=== PATIENT | male | born 1945 | race Caucasian/White ===

== ENCOUNTER 2022-10-01 14:33 | Observation (INO) | payer OTHER ==
[2022-10-01] MEDS ORDERED: Aspirin Chewable 81 MG TAB ONE (15:11)
[2022-10-01 15:32] LABS: #Basophils 0.1 10x3/uL (0.0-0.2); #Eosinphils 0.1 10x3/uL (0.0-0.5); #Monocytes 0.6 10x3/uL (0.0-1.1); #Neutrophils 8.8 10x3/uL (1.5-8.4); %Basophils 0.5 % (0.0-2.0); %Eosinophils 0.5 % (0.0-6.0); %Lymphocytes 14.5 % (18.0-47.0); %Monocytes 5.1 % (0.0-10.0); %Neutrophils 78.7 % (40.0-75.0); Hemoglobin 12.5 g/dL (13.5-17.5); Mean Corpuscular HGB CONC 33.2 g/dL (32.0-36.0); Mean Corpuscular Volume 90.6 fl (81.2-95.1); Mean Platelet Volume 8.6 fl (7.4-10.4); Platelet Count 271 10x3/uL (150-450); RBC Distribution Width 13.7 % (11.5-14.5); Red Blood Cell (RBC) Count 4.16 10x6/uL (4.32-5.72); White Blood Cell (WBC) Count 11.1 10x3/uL (3.5-10.5)
[2022-10-01 15:41] LABS: Prothrombin Time 10.4 sec (9.5-12.1)
[2022-10-01 15:45] LABS: ALT (SGPT) 40 U/L (8-55); AST (SGOT) 36 U/L (5-34); Albumin 4.2 g/dL (3.4-4.8); Alkaline Phosphatase 93 U/L (40-110); Anion Gap 15 mmol/L (10-20); BUN (Urea Nitrogen) 15 mg/dL (8.4-25.7); Bilirubin, Total 0.5 mg/dL (0.2-1.2); Calc. Creatinine Clearance 0 mL/min (70-130); Calcium 8.9 mg/dL (7.8-10.44); Carbon Dioxide 19 mmol/L (23-31); Chloride 99 mmol/L (98-107); Estimated GFR 77; Globulin 2.9 g/dL (2.4-3.5); Glucose 104 mg/dL (83-110); Lipase 24 U/L (8-78); Magnesium 1.8 mg/dL (1.6-2.6); Protein, Total 7.1 g/dL (5.8-8.1); Sodium 128 mmol/L (136-145)
[2022-10-01 15:49] LABS: Troponin I 0.017 ng/mL (< 0.028)
[2022-10-01 16:59] LABS: Bilirubin Neg (Negative); Blood, Urine Negative (Negative); Glucose, Urine (Dipstick) Normal (Negative); Ketone, Urine Negative (Negative); Leukocyte 500 (Negative); Nitrite Negative (Negative); Protein, Urine (Dipstick) 15 mg/dl (Neg-Trace); Urobilinogen Normal mg/dL (Less than 2)
[2022-10-01 17:01] LABS: Clarity Hazy (Clear)
[2022-10-01 17:03] LABS: Bacteria/HPF 4+ HPF (None Seen); RBC/HPF None Seen HPF (0-3); Squamous Epithelial 0-3 HPF (0-3)
[2022-10-01] MEDS ORDERED: traMADol HCl 50 MG TAB PO PRN (17:24)
[2022-10-01 18:21] VITALS: BMI 22.4
[2022-10-01] MEDS: Sodium Chloride 0.9% 1,000 ML IV SCH (19:00)
[2022-10-01 19:01] LABS: Lactic Acid 1.4 mmol/L (0.5-2.2)
[2022-10-01 19:14] LABS: Troponin I 0.012 ng/mL (< 0.028)
[2022-10-01] MEDS: sulfaSALAzine 500 MG TAB PO SCH (21:40)
[2022-10-01] MEDS: Apixaban 5 MG TAB PO SCH (21:40)
[2022-10-01] MEDS: Atorvastatin Calcium 20 MG TAB PO SCH (21:41)
[2022-10-01] MEDS: Sucralfate 1 GM/10 ML UDCUP PO SCH (21:41)
[2022-10-02 00:36] LABS: Troponin I 0.021 ng/mL (< 0.028)
[2022-10-02] MEDS: Sodium Chloride 0.9% 1,000 ML IV SCH ×4 (00:45→20:21)
[2022-10-02 05:47] LABS: #Eosinphils 0.2 10x3/uL (0.0-0.5); #Monocytes 0.5 10x3/uL (0.0-1.1); #Neutrophils 4.7 10x3/uL (1.5-8.4); %Basophils 0.5 % (0.0-2.0); %Eosinophils 1.9 % (0.0-6.0); %Lymphocytes 29.8 % (18.0-47.0); %Neutrophils 60.3 % (40.0-75.0); Hemoglobin 11.1 g/dL (13.5-17.5); Mean Corpuscular HGB CONC 32.6 g/dL (32.0-36.0); Mean Corpuscular Hemoglobin 29.4 pg (27.0-33.0); Mean Corpuscular Volume 90.2 fl (81.2-95.1); Mean Platelet Volume 8.4 fl (7.4-10.4); Platelet Count 226 10x3/uL (150-450); RBC Distribution Width 13.9 % (11.5-14.5); Red Blood Cell (RBC) Count 3.77 10x6/uL (4.32-5.72); White Blood Cell (WBC) Count 7.7 10x3/uL (3.5-10.5)
[2022-10-02 06:34] LABS: Anion Gap 10 mmol/L (10-20); BUN (Urea Nitrogen) 12 mg/dL (8.4-25.7); Calc. Creatinine Clearance 90 mL/min (70-130); Calcium 8.4 mg/dL (7.8-10.44); Carbon Dioxide 21 mmol/L (23-31); Chloride 106 mmol/L (98-107); Estimated GFR 94; Glucose 83 mg/dL (83-110); Potassium 4.3 mmol/L (3.5-5.1); Sodium 133 mmol/L (136-145)
[2022-10-02] MEDS: Cyanocobalamin (Vitamin B-12) 1,000 MCG TAB PO SCH (09:12)
[2022-10-02] MEDS: Colchicine 0.6 MG TAB PO SCH (09:12)
[2022-10-02] MEDS: Apixaban 5 MG TAB PO SCH ×2 (09:12→20:15)
[2022-10-02] MEDS: Aspirin 81 mg Enteric Coated Tablet PO SCH (09:12)
[2022-10-02] MEDS: sulfaSALAzine 500 MG TAB PO SCH ×2 (09:12→20:15)
[2022-10-02] MEDS: cefTRIAXone\\ROCEPHIN 1 GM in Sodium Chloride 0.9% 100 ML IVPB SCH (09:12)
[2022-10-02] MEDS ORDERED: Iopamidol 370 76% 100 ML VIAL ONE (09:13)
[2022-10-02] MEDS: predniSONE 5 MG TAB PO SCH (09:14)
[2022-10-02] MEDS: Sucralfate 1 GM/10 ML UDCUP PO SCH ×2 (09:14→20:15)
[2022-10-02 15:22] LABS: Cardiac Risk 1.9 (Less than 4.5)
[2022-10-02] MEDS: Atorvastatin Calcium 20 MG TAB PO SCH (20:15)
[2022-10-02 22:05] LABS: Hemoglobin A1c 4.6 % (4.0-6.0)
[2022-10-03] MEDS: Sodium Chloride 0.9% 1,000 ML IV SCH (03:30)
[2022-10-03 05:47] LABS: #Basophils 0.1 10x3/uL (0.0-0.2); #Eosinphils 0.2 10x3/uL (0.0-0.5); #Monocytes 0.7 10x3/uL (0.0-1.1); #Neutrophils 4.9 10x3/uL (1.5-8.4); %Basophils 0.7 % (0.0-2.0); %Eosinophils 2.5 % (0.0-6.0); %Lymphocytes 23.9 % (18.0-47.0); %Monocytes 8.9 % (0.0-10.0); %Neutrophils 63.5 % (40.0-75.0); Hemoglobin 10.4 g/dL (13.5-17.5); Mean Corpuscular HGB CONC 32.4 g/dL (32.0-36.0); Mean Corpuscular Hemoglobin 29.8 pg (27.0-33.0); Mean Platelet Volume 8.5 fl (7.4-10.4); Platelet Count 229 10x3/uL (150-450); RBC Distribution Width 13.9 % (11.5-14.5); Red Blood Cell (RBC) Count 3.49 10x6/uL (4.32-5.72); White Blood Cell (WBC) Count 7.6 10x3/uL (3.5-10.5)
[2022-10-03 06:07] LABS: ALT (SGPT) 34 U/L (8-55); AST (SGOT) 25 U/L (5-34); Albumin 3.3 g/dL (3.4-4.8); Alkaline Phosphatase 79 U/L (40-110); Anion Gap 10 mmol/L (10-20); BUN (Urea Nitrogen) 12 mg/dL (8.4-25.7); Bilirubin, Total 0.3 mg/dL (0.2-1.2); Calc. Creatinine Clearance 87 mL/min (70-130); Calcium 8.5 mg/dL (7.8-10.44); Carbon Dioxide 23 mmol/L (23-31); Chloride 107 mmol/L (98-107); Estimated GFR 93; Globulin 2.5 g/dL (2.4-3.5); Glucose 89 mg/dL (83-110); Potassium 4.2 mmol/L (3.5-5.1); Protein, Total 5.8 g/dL (5.8-8.1); Sodium 136 mmol/L (136-145)
[2022-10-03 07:38] VITALS: BP 166/67; TEMP 97.6
[2022-10-03] MEDS: Colchicine 0.6 MG TAB PO SCH (09:12)
[2022-10-03] MEDS: Apixaban 5 MG TAB PO SCH (09:12)
[2022-10-03] MEDS: cefTRIAXone\\ROCEPHIN 1 GM in Sodium Chloride 0.9% 100 ML IVPB SCH (09:12)
[2022-10-03] MEDS: Aspirin 81 mg Enteric Coated Tablet PO SCH (09:12)
[2022-10-03] MEDS: Sucralfate 1 GM/10 ML UDCUP PO SCH (09:12)
[2022-10-03] MEDS: Cyanocobalamin (Vitamin B-12) 1,000 MCG TAB PO SCH (09:12)
[2022-10-03] MEDS: sulfaSALAzine 500 MG TAB PO SCH (09:12)
[2022-10-03] MEDS: predniSONE 5 MG TAB PO SCH (09:17)
== END 2022-10-03 14:07 | disposition home or self-care (01) ==
LOC: CSHERS 14:33 → UNDOADMIN 17:08 → UNDOADMOB 17:08 → INTOOBSV 17:08 → CSHTELE 17:08 → UNDOADMOB 10-02 06:26 → CSHTELE 10-02 06:26
PROVIDERS: ADMIT Family Medicine; ATTEND Internal Medicine
DX: R07.89 Other chest pain (principal); R42 Dizziness and giddiness; N39.0 Urinary tract infection, site not specified; I25.10 Atherosclerotic heart disease of native coronary artery without angina pectoris; I11.0 Hypertensive heart disease with heart failure; I50.30 Unspecified diastolic (congestive) heart failure; K21.9 Gastro-esophageal reflux disease without esophagitis; E87.1 Hypo-osmolality and hyponatremia; M19.90 Unspecified osteoarthritis, unspecified site; M06.9 Rheumatoid arthritis, unspecified; I48.0 Paroxysmal atrial fibrillation; E11.9 Type 2 diabetes mellitus without complications; E78.5 Hyperlipidemia, unspecified; Z87.891 Personal history of nicotine dependence; Z86.73 Personal history of transient ischemic attack (TIA), and cerebral infarction without residual deficits; Z79.01 Long term (current) use of anticoagulants; Z95.0 Presence of cardiac pacemaker; Z79.899 Other long term (current) drug therapy
CPT/HCPCS: 36415; 70496; 71045; 80048; 80053; 80061; 81003; 81015; 83036; 83605; 83690; 83735; 84145; 84484; 85025; 85610; 85730; 87040; 93005; 93010; 93306; 94760; 96374; 96376; G0378; J0696; J3490; J7050; J7512; Q9967

== ENCOUNTER 2023-05-30 17:02 | Inpatient (IN) | payer OTHER, MEDICARE ==
[2023-05-30 19:19] LABS: Troponin I 0.016 ng/mL (< 0.028)
[2023-05-30] MEDS ORDERED: Calcium Carbonate 500 MG ChewTAB PO PRN (19:19)
[2023-05-30] MEDS ORDERED: Ondansetron PF 4 MG/2 ML Vial IVP PRN (19:19)
[2023-05-30] MEDS ORDERED: Ventolin HFA Inhaler 60 PUFF INHALER INH PRN (19:22)
[2023-05-30] MEDS ORDERED: Nitroglycerin 0.4 MG TAB (25 Tab Bottle) SL PRN (19:25)
[2023-05-30] MEDS ORDERED: Sodium Chloride 0.9% 500 ML IV SCH (19:30)
[2023-05-30 19:55] LABS: Lactic Acid 1.5 mmol/L (0.5-2.2)
[2023-05-30] MEDS: Acetaminophen 325 MG TAB PO PRN (21:02)
[2023-05-30] MEDS: Gabapentin 300 MG CAP PO SCH (21:03)
[2023-05-30] MEDS: Amoxicillin/Potassium Clav 875 MG TAB PO SCH (21:03)
[2023-05-30] MEDS: Ferrous Sulfate 325 MG TAB PO SCH (21:04)
[2023-05-30] MEDS: Apixaban 5 MG TAB PO SCH (21:04)
[2023-05-30] MEDS: sulfaSALAzine 500 MG TAB PO SCH (21:04)
[2023-05-30] MEDS: Atorvastatin Calcium 20 MG TAB PO SCH (21:04)
[2023-05-30] MEDS: Hydroxychloroquine Sulfate 200 MG TAB PO SCH (21:05)
[2023-05-30] MEDS: Famotidine 20 MG TAB PO SCH (21:05)
[2023-05-30] MEDS: Tamsulosin HCl 0.4 MG CAP PO SCH (21:08)
[2023-05-30] MEDS ORDERED: Sucralfate 1 GM TAB PO SCH (23:45)
[2023-05-31] MEDS: Ipratropium Bromide 2.5 ml Neb NEB SCH ×4 (01:00→20:35)
[2023-05-31 03:27] LABS: #Basophils 0.1 10x3/uL (0.0-0.2); #Eosinphils 0.2 10x3/uL (0.0-0.5); #Monocytes 0.7 10x3/uL (0.0-1.1); #Neutrophils 5.5 10x3/uL (1.5-8.4); %Basophils 0.7 % (0.0-2.0); %Eosinophils 2.7 % (0.0-6.0); %Lymphocytes 23.1 % (18.0-47.0); %Monocytes 8.4 % (0.0-10.0); %Neutrophils 63.2 % (40.0-75.0); Hematocrit 32.3 % (38.8-50.0); Hemoglobin 10.6 g/dL (13.5-17.5); Mean Corpuscular HGB CONC 32.8 g/dL (32.0-36.0); Mean Corpuscular Volume 85.4 fl (81.2-95.1); Mean Platelet Volume 8.9 fl (7.4-10.4); Platelet Count 362 10x3/uL (150-450); RBC Distribution Width 14.5 % (11.5-14.5); Red Blood Cell (RBC) Count 3.78 10x6/uL (4.32-5.72); White Blood Cell (WBC) Count 8.6 10x3/uL (3.5-10.5)
[2023-05-31 03:47] LABS: Troponin I 0.018 ng/mL (< 0.028)
[2023-05-31 04:37] LABS: Anion Gap 13 mmol/L (10-20); BUN (Urea Nitrogen) 23 mg/dL (8.4-25.7); Calc. Creatinine Clearance 62 mL/min (70-130); Calcium 8.3 mg/dL (7.8-10.44); Carbon Dioxide 21 mmol/L (23-31); Chloride 100 mmol/L (98-107); Estimated GFR 89; Glucose 91 mg/dL (83-110); Potassium 4.5 mmol/L (3.5-5.1); Sodium 129 mmol/L (136-145)
[2023-05-31] MEDS: Sucralfate 1 GM TAB PO SCH ×3 (06:02→17:57)
[2023-05-31] MEDS: Acetaminophen 325 MG TAB PO PRN (06:02)
[2023-05-31] MEDS: Cholecalciferol 1,000 UNITS (25 MCG) TAB PO SCH (09:57)
[2023-05-31] MEDS: Hydroxychloroquine Sulfate 200 MG TAB PO SCH ×2 (09:57→20:35)
[2023-05-31] MEDS: predniSONE 5 MG TAB PO SCH (09:57)
[2023-05-31] MEDS: Cyanocobalamin (Vitamin B-12) 1,000 MCG TAB PO SCH (09:57)
[2023-05-31] MEDS: Apixaban 5 MG TAB PO SCH ×2 (09:58→20:35)
[2023-05-31] MEDS: Amiodarone 200 MG TAB PO SCH (09:58)
[2023-05-31] MEDS: Folic Acid 1 MG TAB PO SCH (09:58)
[2023-05-31] MEDS: Ferrous Sulfate 325 MG TAB PO SCH ×2 (09:58→20:33)
[2023-05-31] MEDS: Famotidine 20 MG TAB PO SCH ×2 (09:58→20:34)
[2023-05-31] MEDS: sulfaSALAzine 500 MG TAB PO SCH ×2 (09:58→20:33)
[2023-05-31] MEDS: Gabapentin 300 MG CAP PO SCH ×2 (09:58→20:34)
[2023-05-31] MEDS: Finasteride 5 MG TAB PO SCH (09:59)
[2023-05-31] MEDS: Amoxicillin/Potassium Clav 875 MG TAB PO SCH ×2 (09:59→20:34)
[2023-05-31] MEDS: Colchicine 0.6 MG TAB PO SCH (10:00)
[2023-05-31 13:28] LABS: Potassium, Urine 18.5 mmol/L; Sodium, Urine Less than 20 mmol/L (Not Available)
[2023-05-31] MEDS: Tamsulosin HCl 0.4 MG CAP PO SCH (20:34)
[2023-05-31] MEDS: Atorvastatin Calcium 20 MG TAB PO SCH (20:37)
[2023-06-01] MEDS: Ipratropium Bromide 2.5 ml Neb NEB SCH ×4 (01:00→19:16)
[2023-06-01] MEDS: Sucralfate 1 GM TAB PO SCH ×3 (06:05→15:44)
[2023-06-01] MEDS: Amoxicillin/Potassium Clav 875 MG TAB PO SCH ×2 (09:15→21:33)
[2023-06-01] MEDS: Isosorbide Mononitrate 30 MG ER.TAB PO SCH (09:15)
[2023-06-01] MEDS: Ferrous Sulfate 325 MG TAB PO SCH ×2 (09:15→21:33)
[2023-06-01] MEDS: Cyanocobalamin (Vitamin B-12) 1,000 MCG TAB PO SCH (09:15)
[2023-06-01] MEDS: sulfaSALAzine 500 MG TAB PO SCH ×2 (09:15→21:33)
[2023-06-01] MEDS: Apixaban 5 MG TAB PO SCH ×2 (09:15→21:32)
[2023-06-01] MEDS: Cholecalciferol 1,000 UNITS (25 MCG) TAB PO SCH (09:16)
[2023-06-01] MEDS: Famotidine 20 MG TAB PO SCH ×2 (09:16→21:33)
[2023-06-01] MEDS: Finasteride 5 MG TAB PO SCH (09:16)
[2023-06-01] MEDS: Amiodarone 200 MG TAB PO SCH (09:16)
[2023-06-01] MEDS: Folic Acid 1 MG TAB PO SCH (09:16)
[2023-06-01] MEDS: Gabapentin 300 MG CAP PO SCH ×2 (09:16→21:32)
[2023-06-01] MEDS: Colchicine 0.6 MG TAB PO SCH (09:17)
[2023-06-01] MEDS: Hydroxychloroquine Sulfate 200 MG TAB PO SCH ×2 (09:17→21:32)
[2023-06-01] MEDS: predniSONE 5 MG TAB PO SCH (09:17)
[2023-06-01] MEDS: Morphine 4 MG/ML VIAL ONE ×2 (10:40→11:25)
[2023-06-01] MEDS ORDERED: Morphine 2 MG/ML VIAL SLOW IVP PRN (10:50)
[2023-06-01] MEDS ORDERED: Morphine 2 MG/ML VIAL SLOW IVP SCH (11:00)
[2023-06-01] MEDS ORDERED: Aspirin 81 mg Enteric Coated Tablet PO SCH (11:00)
[2023-06-01] MEDS ORDERED: Digoxin 0.125 MG TAB PO SCH (14:30)
[2023-06-01] MEDS: Tamsulosin HCl 0.4 MG CAP PO SCH (21:32)
[2023-06-01] MEDS: Atorvastatin Calcium 20 MG TAB PO SCH (21:32)
[2023-06-02] MEDS: Ipratropium Bromide 2.5 ml Neb NEB SCH ×4 (00:48→18:44)
[2023-06-02 04:41] LABS: #Basophils 0.1 10x3/uL (0.0-0.2); #Eosinphils 0.2 10x3/uL (0.0-0.5); #Monocytes 0.9 10x3/uL (0.0-1.1); #Neutrophils 6.9 10x3/uL (1.5-8.4); %Basophils 0.8 % (0.0-2.0); %Eosinophils 1.8 % (0.0-6.0); %Monocytes 8.3 % (0.0-10.0); Hematocrit 33.3 % (38.8-50.0); Mean Corpuscular Hemoglobin 27.8 pg (27.0-33.0); Mean Corpuscular Volume 84.3 fl (81.2-95.1); Mean Platelet Volume 8.9 fl (7.4-10.4); Platelet Count 372 10x3/uL (150-450); Red Blood Cell (RBC) Count 3.95 10x6/uL (4.32-5.72); White Blood Cell (WBC) Count 10.6 10x3/uL (3.5-10.5)
[2023-06-02 04:44] LABS: Anion Gap 14 mmol/L (10-20); BUN (Urea Nitrogen) 25 mg/dL (8.4-25.7); Calc. Creatinine Clearance 53 mL/min (70-130); Calcium 8.2 mg/dL (7.8-10.44); Carbon Dioxide 22 mmol/L (23-31); Chloride 96 mmol/L (98-107); Estimated GFR 78; Glucose 84 mg/dL (83-110); Magnesium 1.4 mg/dL (1.6-2.6); Potassium 5.8 mmol/L (3.5-5.1); Sodium 126 mmol/L (136-145)
[2023-06-02] MEDS: Sucralfate 1 GM TAB PO SCH ×4 (06:35→17:24)
[2023-06-02 08:48] LABS: Troponin I 0.028 ng/mL (< 0.028)
[2023-06-02 09:29] LABS: Anion Gap 14 mmol/L (10-20); BUN (Urea Nitrogen) 25 mg/dL (8.4-25.7); Calc. Creatinine Clearance 51 mL/min (70-130); Calcium 8.4 mg/dL (7.8-10.44); Carbon Dioxide 21 mmol/L (23-31); Chloride 97 mmol/L (98-107); Estimated GFR 77; Glucose 87 mg/dL (83-110); Potassium 5.5 mmol/L (3.5-5.1); Sodium 126 mmol/L (136-145)
[2023-06-02] MEDS ORDERED: Hydrocortisone Sod Succ/PF 100 mg/2 ml Vial IVP SCH ×2 (09:30→22:15)
[2023-06-02] MEDS: Cholecalciferol 1,000 UNITS (25 MCG) TAB PO SCH (09:43)
[2023-06-02] MEDS: Folic Acid 1 MG TAB PO SCH (09:43)
[2023-06-02] MEDS: Digoxin 0.125 MG TAB PO SCH (09:43)
[2023-06-02] MEDS: Amoxicillin/Potassium Clav 875 MG TAB PO SCH ×2 (09:44→21:18)
[2023-06-02] MEDS: Finasteride 5 MG TAB PO SCH (09:44)
[2023-06-02] MEDS: Cyanocobalamin (Vitamin B-12) 1,000 MCG TAB PO SCH (09:44)
[2023-06-02] MEDS: Gabapentin 300 MG CAP PO SCH ×2 (09:44→21:18)
[2023-06-02] MEDS: Aspirin 81 mg Enteric Coated Tablet PO SCH (09:44)
[2023-06-02] MEDS: Ferrous Sulfate 325 MG TAB PO SCH ×2 (09:44→21:18)
[2023-06-02] MEDS: Colchicine 0.6 MG TAB PO SCH (09:44)
[2023-06-02] MEDS: Isosorbide Mononitrate 30 MG ER.TAB PO SCH ×2 (09:44→13:03)
[2023-06-02] MEDS: Amiodarone 200 MG TAB PO SCH (09:45)
[2023-06-02] MEDS: Hydroxychloroquine Sulfate 200 MG TAB PO SCH ×2 (09:45→21:18)
[2023-06-02] MEDS: Famotidine 20 MG TAB PO SCH ×2 (09:45→21:17)
[2023-06-02] MEDS ORDERED: Magnesium 2 GM/50 ML(in water) 2 GM in Premix 1 BAG IVPB SCH (10:00)
[2023-06-02] MEDS: sulfaSALAzine 500 MG TAB PO SCH ×2 (11:26→21:17)
[2023-06-02] MEDS ORDERED: Isosorbide Mononitrate 30 MG ER.TAB PO SCH (13:30)
[2023-06-02] MEDS ORDERED: Apixaban 5 MG TAB PO SCH (14:00)
[2023-06-02 19:36] LABS: Anion Gap 15 mmol/L (10-20); BUN (Urea Nitrogen) 27 mg/dL (8.4-25.7); Calc. Creatinine Clearance 53 mL/min (70-130); Calcium 8.2 mg/dL (7.8-10.44); Carbon Dioxide 21 mmol/L (23-31); Chloride 96 mmol/L (98-107); Estimated GFR 82; Glucose 120 mg/dL (83-110); Potassium 5.5 mmol/L (3.5-5.1); Sodium 126 mmol/L (136-145)
[2023-06-02] MEDS: Tamsulosin HCl 0.4 MG CAP PO SCH (21:17)
[2023-06-02] MEDS: Apixaban 5 MG TAB PO SCH (21:18)
[2023-06-02] MEDS: Atorvastatin Calcium 20 MG TAB PO SCH (21:18)
[2023-06-02] MEDS ORDERED: LOKELMA 10 GM PACKET PO SCH (21:30)
[2023-06-02] MEDS ORDERED: Albumin 25% 25 GM (100 mL) BOT IVPB SCH (21:30)
[2023-06-03] MEDS: Ipratropium Bromide 2.5 ml Neb NEB SCH ×4 (01:37→19:45)
[2023-06-03] MEDS ORDERED: Albumin 25% 25 GM (100 mL) BOT IVPB SCH (03:30)
[2023-06-03] MEDS ORDERED: Hydrocortisone Sod Succ/PF 100 mg/2 ml Vial IVP SCH (04:00)
[2023-06-03 05:44] LABS: Anion Gap 15 mmol/L (10-20); BUN (Urea Nitrogen) 25 mg/dL (8.4-25.7); Calc. Creatinine Clearance 51 mL/min (70-130); Calcium 8.5 mg/dL (7.8-10.44); Carbon Dioxide 20 mmol/L (23-31); Chloride 97 mmol/L (98-107); Estimated GFR 78; Glucose 94 mg/dL (83-110); Potassium 5.2 mmol/L (3.5-5.1); Sodium 127 mmol/L (136-145)
[2023-06-03] MEDS: Gabapentin 300 MG CAP PO SCH ×2 (08:47→20:34)
[2023-06-03] MEDS: Aspirin 81 mg Enteric Coated Tablet PO SCH (08:47)
[2023-06-03] MEDS: Isosorbide Mononitrate 30 MG ER.TAB PO SCH (08:47)
[2023-06-03] MEDS: sulfaSALAzine 500 MG TAB PO SCH ×2 (08:47→20:33)
[2023-06-03] MEDS: Folic Acid 1 MG TAB PO SCH (08:48)
[2023-06-03] MEDS: Ferrous Sulfate 325 MG TAB PO SCH ×2 (08:48→20:32)
[2023-06-03] MEDS: Famotidine 20 MG TAB PO SCH ×2 (08:48→20:32)
[2023-06-03] MEDS: Hydroxychloroquine Sulfate 200 MG TAB PO SCH ×2 (08:48→20:32)
[2023-06-03] MEDS: Colchicine 0.6 MG TAB PO SCH (08:48)
[2023-06-03] MEDS: Cyanocobalamin (Vitamin B-12) 1,000 MCG TAB PO SCH (08:48)
[2023-06-03] MEDS: Digoxin 0.125 MG TAB PO SCH (08:49)
[2023-06-03] MEDS: predniSONE 10 MG TAB PO SCH (08:49)
[2023-06-03] MEDS: Finasteride 5 MG TAB PO SCH (08:49)
[2023-06-03] MEDS: Amiodarone 200 MG TAB PO SCH (08:49)
[2023-06-03] MEDS: Apixaban 5 MG TAB PO SCH ×2 (08:49→20:32)
[2023-06-03] MEDS: Cholecalciferol 1,000 UNITS (25 MCG) TAB PO SCH (08:49)
[2023-06-03] MEDS: Sucralfate 1 GM TAB PO SCH ×2 (09:06→17:38)
[2023-06-03 10:08] LABS: Anion Gap 16 mmol/L (10-20); BUN (Urea Nitrogen) 24 mg/dL (8.4-25.7); Calc. Creatinine Clearance 50 mL/min (70-130); Calcium 8.8 mg/dL (7.8-10.44); Carbon Dioxide 18 mmol/L (23-31); Chloride 99 mmol/L (98-107); Estimated GFR 77; Glucose 142 mg/dL (83-110); Potassium 5.1 mmol/L (3.5-5.1); Sodium 128 mmol/L (136-145)
[2023-06-03] MEDS: Atorvastatin Calcium 20 MG TAB PO SCH (20:33)
[2023-06-03] MEDS: Tamsulosin HCl 0.4 MG CAP PO SCH (20:33)
[2023-06-04] MEDS: Ipratropium Bromide 2.5 ml Neb NEB SCH ×4 (01:14→20:00)
[2023-06-04 03:55] LABS: #Basophils 0.1 10x3/uL (0.0-0.2); #Eosinphils 0.1 10x3/uL (0.0-0.5); #Monocytes 0.7 10x3/uL (0.0-1.1); #Neutrophils 6.8 10x3/uL (1.5-8.4); %Basophils 0.5 % (0.0-2.0); %Eosinophils 0.8 % (0.0-6.0); %Lymphocytes 20.1 % (18.0-47.0); %Monocytes 7.1 % (0.0-10.0); %Neutrophils 69.8 % (40.0-75.0); Hematocrit 30.5 % (38.8-50.0); Hemoglobin 10.2 g/dL (13.5-17.5); Mean Corpuscular HGB CONC 33.4 g/dL (32.0-36.0); Mean Corpuscular Hemoglobin 27.8 pg (27.0-33.0); Mean Corpuscular Volume 83.1 fl (81.2-95.1); Mean Platelet Volume 8.9 fl (7.4-10.4); Platelet Count 348 10x3/uL (150-450); RBC Distribution Width 14.2 % (11.5-14.5); Red Blood Cell (RBC) Count 3.67 10x6/uL (4.32-5.72); White Blood Cell (WBC) Count 9.8 10x3/uL (3.5-10.5)
[2023-06-04 04:05] LABS: Anion Gap 13 mmol/L (10-20); BUN (Urea Nitrogen) 26 mg/dL (8.4-25.7); Calc. Creatinine Clearance 57 mL/min (70-130); Calcium 8.6 mg/dL (7.8-10.44); Carbon Dioxide 19 mmol/L (23-31); Chloride 101 mmol/L (98-107); Estimated GFR 88; Glucose 83 mg/dL (83-110); Potassium 4.9 mmol/L (3.5-5.1); Sodium 128 mmol/L (136-145)
[2023-06-04] MEDS: Sucralfate 1 GM TAB PO SCH (06:06)
[2023-06-04] MEDS: Cyanocobalamin (Vitamin B-12) 1,000 MCG TAB PO SCH (08:38)
[2023-06-04] MEDS: Cholecalciferol 1,000 UNITS (25 MCG) TAB PO SCH (08:38)
[2023-06-04] MEDS: Digoxin 0.125 MG TAB PO SCH (08:38)
[2023-06-04] MEDS: Isosorbide Mononitrate 30 MG ER.TAB PO SCH (08:38)
[2023-06-04] MEDS: sulfaSALAzine 500 MG TAB PO SCH (08:38)
[2023-06-04] MEDS: Aspirin 81 mg Enteric Coated Tablet PO SCH (08:38)
[2023-06-04] MEDS: Famotidine 20 MG TAB PO SCH ×2 (08:39→21:59)
[2023-06-04] MEDS: Ferrous Sulfate 325 MG TAB PO SCH (08:39)
[2023-06-04] MEDS: Finasteride 5 MG TAB PO SCH (08:39)
[2023-06-04] MEDS: predniSONE 10 MG TAB PO SCH (08:39)
[2023-06-04] MEDS: Folic Acid 1 MG TAB PO SCH (08:39)
[2023-06-04] MEDS: Apixaban 5 MG TAB PO SCH ×2 (08:40→21:59)
[2023-06-04] MEDS: Amiodarone 200 MG TAB PO SCH (08:40)
[2023-06-04] MEDS: Gabapentin 300 MG CAP PO SCH ×2 (08:41→21:59)
[2023-06-04] MEDS: Hydroxychloroquine Sulfate 200 MG TAB PO SCH ×2 (08:42→22:27)
[2023-06-04] MEDS: Tamsulosin HCl 0.4 MG CAP PO SCH (21:58)
[2023-06-04] MEDS: Atorvastatin Calcium 20 MG TAB PO SCH (21:58)
[2023-06-05] MEDS: Ipratropium Bromide 2.5 ml Neb NEB SCH ×4 (00:50→19:07)
[2023-06-05 04:06] LABS: Anion Gap 15 mmol/L (10-20); BUN (Urea Nitrogen) 25 mg/dL (8.4-25.7); Calc. Creatinine Clearance 50 mL/min (70-130); Calcium 8.6 mg/dL (7.8-10.44); Carbon Dioxide 15 mmol/L (23-31); Chloride 103 mmol/L (98-107); Estimated GFR 78; Glucose 94 mg/dL (83-110); Potassium 5.7 mmol/L (3.5-5.1); Sodium 127 mmol/L (136-145)
[2023-06-05] MEDS ORDERED: Sodium Chloride 0.9% 1,000 ML IV SCH (08:30)
[2023-06-05] MEDS ORDERED: LOKELMA 10 GM PACKET PO SCH (09:00)
[2023-06-05] MEDS ORDERED: Sodium Bicarbonate 150 MEQ in Dextrose 5% in Water 1,000 ML IV SCH (09:00)
[2023-06-05] MEDS: Multivitamin W/ Minerals 1 TAB PO SCH (09:55)
[2023-06-05] MEDS: Apixaban 5 MG TAB PO SCH ×2 (09:55→20:38)
[2023-06-05] MEDS: Cholecalciferol 1,000 UNITS (25 MCG) TAB PO SCH (09:55)
[2023-06-05] MEDS: Finasteride 5 MG TAB PO SCH (09:56)
[2023-06-05] MEDS: Aspirin 81 mg Enteric Coated Tablet PO SCH (09:56)
[2023-06-05] MEDS: predniSONE 10 MG TAB PO SCH (09:56)
[2023-06-05] MEDS: Famotidine 20 MG TAB PO SCH ×2 (09:56→20:38)
[2023-06-05] MEDS: Gabapentin 300 MG CAP PO SCH ×2 (09:56→20:38)
[2023-06-05] MEDS: Digoxin 0.125 MG TAB PO SCH (09:57)
[2023-06-05] MEDS: Isosorbide Mononitrate 30 MG ER.TAB PO SCH (09:57)
[2023-06-05] MEDS: Amiodarone 200 MG TAB PO SCH (09:57)
[2023-06-05] MEDS: Hydroxychloroquine Sulfate 200 MG TAB PO SCH ×2 (09:58→20:45)
[2023-06-05] MEDS: Hydrocortisone 10 mg Tablet PO SCH ×3 (09:59→20:45)
[2023-06-05] MEDS ORDERED: Diphenoxylate HCl/Atropine Tablet PO SCH (20:00)
[2023-06-05] MEDS: Tamsulosin HCl 0.4 MG CAP PO SCH (20:37)
[2023-06-05] MEDS: Atorvastatin Calcium 20 MG TAB PO SCH (20:38)
[2023-06-06] MEDS: Ipratropium Bromide 2.5 ml Neb NEB SCH ×4 (01:09→19:14)
[2023-06-06 04:59] LABS: Anion Gap 12 mmol/L (10-20); BUN (Urea Nitrogen) 23 mg/dL (8.4-25.7); Calc. Creatinine Clearance 58 mL/min (70-130); Calcium 8.1 mg/dL (7.8-10.44); Carbon Dioxide 26 mmol/L (23-31); Chloride 96 mmol/L (98-107); Estimated GFR 88; Glucose 102 mg/dL (83-110); Iron 38 ug/dL (65-175); Iron 39 ug/dL (65-175); Iron Binding Capacity, Total 225 mcg/dL (261-462); Iron Binding Capacity, Total 231 mcg/dL (261-462); Potassium 5.2 mmol/L (3.5-5.1); Sodium 129 mmol/L (136-145)
[2023-06-06 05:15] LABS: Ferritin 569.23 ng/mL (22-322)
[2023-06-06] MEDS ORDERED: Diphenoxylate HCl/Atropine Tablet PO SCH (09:00)
[2023-06-06] MEDS ORDERED: Loperamide HCl 2 MG CAP PO SCH (09:00)
[2023-06-06] MEDS: Cholecalciferol 1,000 UNITS (25 MCG) TAB PO SCH (09:50)
[2023-06-06] MEDS: Amiodarone 200 MG TAB PO SCH (09:50)
[2023-06-06] MEDS: predniSONE 10 MG TAB PO SCH (09:50)
[2023-06-06] MEDS: Gabapentin 300 MG CAP PO SCH ×2 (09:50→21:01)
[2023-06-06] MEDS: Apixaban 5 MG TAB PO SCH ×2 (09:51→21:01)
[2023-06-06] MEDS: Finasteride 5 MG TAB PO SCH (09:51)
[2023-06-06] MEDS: Isosorbide Mononitrate 30 MG ER.TAB PO SCH (09:51)
[2023-06-06] MEDS: Digoxin 0.125 MG TAB PO SCH (09:52)
[2023-06-06] MEDS: Hydrocortisone 10 mg Tablet PO SCH ×3 (09:52→21:02)
[2023-06-06] MEDS: Aspirin 81 mg Enteric Coated Tablet PO SCH (09:52)
[2023-06-06] MEDS: Famotidine 20 MG TAB PO SCH (09:52)
[2023-06-06] MEDS: Hydroxychloroquine Sulfate 200 MG TAB PO SCH ×2 (09:53→21:02)
[2023-06-06] MEDS: Multivitamin W/ Minerals 1 TAB PO SCH (09:56)
[2023-06-06 10:59] LABS: Anion Gap 14 mmol/L (10-20); BUN (Urea Nitrogen) 24 mg/dL (8.4-25.7); Calc. Creatinine Clearance 54 mL/min (70-130); Calcium 8.7 mg/dL (7.8-10.44); Carbon Dioxide 24 mmol/L (23-31); Chloride 97 mmol/L (98-107); Estimated GFR 85; Glucose 99 mg/dL (83-110); Potassium 4.8 mmol/L (3.5-5.1); Sodium 130 mmol/L (136-145)
[2023-06-06 13:55] LABS: Vitamin B12 Greater than 2000 pg/mL (211-911)
[2023-06-06] MEDS: Ferrous Sulfate 325 MG TAB PO SCH (16:06)
[2023-06-06] MEDS: Diphenoxylate HCl/Atropine Tablet PO SCH (19:04)
[2023-06-06] MEDS: Tamsulosin HCl 0.4 MG CAP PO SCH (21:01)
[2023-06-06] MEDS: Atorvastatin Calcium 20 MG TAB PO SCH (21:02)
[2023-06-07] MEDS: Diphenoxylate HCl/Atropine Tablet PO SCH ×4 (00:14→17:03)
[2023-06-07] MEDS: Ipratropium Bromide 2.5 ml Neb NEB SCH ×4 (00:43→19:15)
[2023-06-07 04:51] LABS: Phosphorus 3.9 mg/dL (2.3-4.7)
[2023-06-07 04:53] LABS: Anion Gap 13 mmol/L (10-20); BUN (Urea Nitrogen) 29 mg/dL (8.4-25.7); Calc. Creatinine Clearance 53 mL/min (70-130); Calcium 8.7 mg/dL (7.8-10.44); Carbon Dioxide 23 mmol/L (23-31); Chloride 99 mmol/L (98-107); Estimated GFR 84; Glucose 92 mg/dL (83-110); Magnesium 1.7 mg/dL (1.6-2.6); Potassium 4.9 mmol/L (3.5-5.1); Sodium 130 mmol/L (136-145)
[2023-06-07] MEDS: Ferrous Sulfate 325 MG TAB PO SCH ×2 (08:20→17:03)
[2023-06-07] MEDS: Isosorbide Mononitrate 30 MG ER.TAB PO SCH (09:19)
[2023-06-07] MEDS: Cholecalciferol 1,000 UNITS (25 MCG) TAB PO SCH (09:19)
[2023-06-07] MEDS: Hydroxychloroquine Sulfate 200 MG TAB PO SCH ×2 (09:19→21:09)
[2023-06-07] MEDS: Multivitamin W/ Minerals 1 TAB PO SCH (09:19)
[2023-06-07] MEDS: predniSONE 10 MG TAB PO SCH (09:19)
[2023-06-07] MEDS: Hydrocortisone 10 mg Tablet PO SCH ×3 (09:20→21:09)
[2023-06-07] MEDS: Amiodarone 200 MG TAB PO SCH (09:20)
[2023-06-07] MEDS: Aspirin 81 mg Enteric Coated Tablet PO SCH (09:20)
[2023-06-07] MEDS: Digoxin 0.125 MG TAB PO SCH (09:20)
[2023-06-07] MEDS: Apixaban 5 MG TAB PO SCH ×2 (09:20→22:55)
[2023-06-07] MEDS: Gabapentin 300 MG CAP PO SCH ×2 (09:21→21:10)
[2023-06-07] MEDS: Finasteride 5 MG TAB PO SCH (09:21)
[2023-06-07] MEDS: Pantoprazole 40 MG VIAL IVP SCH ×2 (09:23→21:11)
[2023-06-07 13:20] LABS: Ref Lab Test Ordered stool fecal elastase; Reference Lab Name LABCORP
[2023-06-07] MEDS ORDERED: Lidocaine 1% PF 5 ML VIAL ONE ×2 (15:15→15:17)
[2023-06-07 16:10] VITALS: BMI 17.1
[2023-06-07 16:40] LABS: PTT 27.9 sec (22.0-33.0)
[2023-06-07 17:24] LABS: INR-International Normal Ratio 1.1; Prothrombin Time 11.4 sec (9.5-12.1)
[2023-06-07] MEDS: AMOXicillin 250 MG CAP PO SCH (21:09)
[2023-06-07] MEDS: Atorvastatin Calcium 20 MG TAB PO SCH (21:09)
[2023-06-07] MEDS: metroNIDAZOLE 500 MG TAB PO SCH (21:10)
[2023-06-07] MEDS: Tamsulosin HCl 0.4 MG CAP PO SCH (21:10)
[2023-06-08] MEDS: Diphenoxylate HCl/Atropine Tablet PO SCH ×5 (00:03→23:29)
[2023-06-08] MEDS: Ipratropium Bromide 2.5 ml Neb NEB SCH ×4 (01:00→19:35)
[2023-06-08 04:32] LABS: Anion Gap 13 mmol/L (10-20); BUN (Urea Nitrogen) 29 mg/dL (8.4-25.7); Calc. Creatinine Clearance 55 mL/min (70-130); Calcium 8.5 mg/dL (7.8-10.44); Carbon Dioxide 19 mmol/L (23-31); Chloride 103 mmol/L (98-107); Estimated GFR 87; Glucose 109 mg/dL (83-110); Sodium 130 mmol/L (136-145)
[2023-06-08] MEDS: Pantoprazole 40 MG VIAL IVP SCH ×3 (09:10→22:01)
[2023-06-08] MEDS: Cholecalciferol 1,000 UNITS (25 MCG) TAB PO SCH (09:15)
[2023-06-08] MEDS: Aspirin 81 mg Enteric Coated Tablet PO SCH (09:15)
[2023-06-08] MEDS: Digoxin 0.125 MG TAB PO SCH (09:15)
[2023-06-08] MEDS: Hydrocortisone 10 mg Tablet PO SCH ×3 (09:15→21:58)
[2023-06-08] MEDS: Gabapentin 300 MG CAP PO SCH ×2 (09:16→21:58)
[2023-06-08] MEDS: Isosorbide Mononitrate 30 MG ER.TAB PO SCH (09:17)
[2023-06-08] MEDS: AMOXicillin 250 MG CAP PO SCH ×2 (09:17→21:59)
[2023-06-08] MEDS: Hydroxychloroquine Sulfate 200 MG TAB PO SCH ×2 (09:17→21:58)
[2023-06-08] MEDS: Finasteride 5 MG TAB PO SCH (09:17)
[2023-06-08] MEDS: metroNIDAZOLE 500 MG TAB PO SCH ×2 (09:18→21:59)
[2023-06-08] MEDS: Apixaban 5 MG TAB PO SCH ×2 (09:18→21:58)
[2023-06-08] MEDS: Ferrous Sulfate 325 MG TAB PO SCH ×2 (09:18→18:23)
[2023-06-08] MEDS: Multivitamin W/ Minerals 1 TAB PO SCH (09:19)
[2023-06-08] MEDS: Amiodarone 200 MG TAB PO SCH (09:23)
[2023-06-08] MEDS ORDERED: Magnesium 2 GM/50 ML(in water) 2 GM in Premix 1 BAG IVPB SCH (09:30)
[2023-06-08] MEDS ORDERED: Sodium Bicarbonate 2.5 MEQ/5 ML SDV ONE (10:42)
[2023-06-08] MEDS ORDERED: Lidocaine 1% PF 5 ML VIAL ONE (10:42)
[2023-06-08] MEDS: Tamsulosin HCl 0.4 MG CAP PO SCH (21:58)
[2023-06-08] MEDS: Atorvastatin Calcium 20 MG TAB PO SCH (21:59)
[2023-06-09] MEDS: Ipratropium Bromide 2.5 ml Neb NEB SCH ×4 (02:25→19:15)
[2023-06-09 05:26] LABS: Anion Gap 12 mmol/L (10-20); BUN (Urea Nitrogen) 27 mg/dL (8.4-25.7); Calc. Creatinine Clearance 49 mL/min (70-130); Calcium 8.4 mg/dL (7.8-10.44); Carbon Dioxide 21 mmol/L (23-31); Chloride 102 mmol/L (98-107); Estimated GFR 77; Glucose 104 mg/dL (83-110); Phosphorus 2.7 mg/dL (2.3-4.7); Potassium 4.7 mmol/L (3.5-5.1); Sodium 130 mmol/L (136-145)
[2023-06-09 05:53] LABS: Actual Bicarbonate (HCO3v) 22.1 mEq/L (22-28); Analyzer IN Cardio CS ICU; Base Excess -4.9 mEq/L (-2 - +2); Calcium, Ionized (venous) 1.19 mmol/L (1.16-1.32); Chloride (VBG) 101 mmol/L (98-106); Hematocrit-VBG 36 % (42.0-52.0); Hemoglobin (Hb) 12.4 g/dL (12.6-17.4); Potassium (VBG) 4.49 mmol/L (3.70-5.30); Puncture Site Other Site; RapidComm Collect By LAB; Sodium 128 mmol/L (133-146); pH (venous) 7.276 (7.32-7.43)
[2023-06-09] MEDS: Diphenoxylate HCl/Atropine Tablet PO SCH ×4 (07:44→23:23)
[2023-06-09] MEDS: Pantoprazole 40 MG VIAL IVP SCH ×3 (09:46→21:34)
[2023-06-09] MEDS: Amiodarone 200 MG TAB PO SCH (09:47)
[2023-06-09] MEDS: Aspirin 81 mg Enteric Coated Tablet PO SCH (09:47)
[2023-06-09] MEDS: Ferrous Sulfate 325 MG TAB PO SCH ×2 (09:47→16:22)
[2023-06-09] MEDS: Hydrocortisone 10 mg Tablet PO SCH ×3 (09:47→21:29)
[2023-06-09] MEDS: Gabapentin 300 MG CAP PO SCH ×2 (09:47→21:27)
[2023-06-09] MEDS: Hydroxychloroquine Sulfate 200 MG TAB PO SCH ×2 (09:47→21:29)
[2023-06-09] MEDS: Apixaban 5 MG TAB PO SCH ×2 (09:47→21:27)
[2023-06-09] MEDS: metroNIDAZOLE 500 MG TAB PO SCH ×2 (09:48→21:28)
[2023-06-09] MEDS: Cholecalciferol 1,000 UNITS (25 MCG) TAB PO SCH (09:48)
[2023-06-09] MEDS: AMOXicillin 250 MG CAP PO SCH ×2 (09:48→21:27)
[2023-06-09] MEDS: Multivitamin W/ Minerals 1 TAB PO SCH (09:48)
[2023-06-09] MEDS: Finasteride 5 MG TAB PO SCH (09:48)
[2023-06-09] MEDS: Digoxin 0.125 MG TAB PO SCH (09:48)
[2023-06-09] MEDS: Isosorbide Mononitrate 30 MG ER.TAB PO SCH (09:49)
[2023-06-09] MEDS: Atorvastatin Calcium 20 MG TAB PO SCH (21:27)
[2023-06-09] MEDS: Tamsulosin HCl 0.4 MG CAP PO SCH (21:28)
[2023-06-10] MEDS: Ipratropium Bromide 2.5 ml Neb NEB SCH ×4 (01:40→19:38)
[2023-06-10 05:04] LABS: Anion Gap 13 mmol/L (10-20); BUN (Urea Nitrogen) 28 mg/dL (8.4-25.7); Calc. Creatinine Clearance 51 mL/min (70-130); Calcium 8.7 mg/dL (7.8-10.44); Carbon Dioxide 19 mmol/L (23-31); Chloride 102 mmol/L (98-107); Estimated GFR 81; Glucose 96 mg/dL (83-110); Potassium 5.4 mmol/L (3.5-5.1); Sodium 129 mmol/L (136-145)
[2023-06-10] MEDS: Diphenoxylate HCl/Atropine Tablet PO SCH ×3 (06:04→16:21)
[2023-06-10] MEDS: Hydrocortisone 10 mg Tablet PO SCH ×3 (09:42→21:07)
[2023-06-10] MEDS: Aspirin 81 mg Enteric Coated Tablet PO SCH (09:42)
[2023-06-10] MEDS: Ferrous Sulfate 325 MG TAB PO SCH ×2 (09:42→16:21)
[2023-06-10] MEDS: AMOXicillin 250 MG CAP PO SCH ×2 (09:42→21:06)
[2023-06-10] MEDS: metroNIDAZOLE 500 MG TAB PO SCH ×2 (09:42→21:07)
[2023-06-10] MEDS: Pantoprazole 40 MG VIAL IVP SCH ×3 (09:42→21:08)
[2023-06-10] MEDS: Gabapentin 300 MG CAP PO SCH ×2 (09:43→21:07)
[2023-06-10] MEDS: Cholecalciferol 1,000 UNITS (25 MCG) TAB PO SCH (09:43)
[2023-06-10] MEDS: Multivit, Therapeutic 1 TAB PO SCH (09:43)
[2023-06-10] MEDS: Amiodarone 200 MG TAB PO SCH (09:43)
[2023-06-10] MEDS: Digoxin 0.125 MG TAB PO SCH (09:43)
[2023-06-10] MEDS: Finasteride 5 MG TAB PO SCH (09:43)
[2023-06-10] MEDS: Apixaban 5 MG TAB PO SCH ×2 (09:43→21:08)
[2023-06-10] MEDS: Isosorbide Mononitrate 30 MG ER.TAB PO SCH (09:44)
[2023-06-10] MEDS: Hydroxychloroquine Sulfate 200 MG TAB PO SCH ×2 (09:49→21:06)
[2023-06-10] MEDS: [UNRECOGNIZED DRUG - REMARK] IV SCH (15:42)
[2023-06-10] MEDS: Fat Emulsion 250 ML IVPB SCH (15:43)
[2023-06-10] MEDS: Atorvastatin Calcium 20 MG TAB PO SCH (21:07)
[2023-06-10] MEDS: Tamsulosin HCl 0.4 MG CAP PO SCH (21:08)
[2023-06-11] MEDS: Diphenoxylate HCl/Atropine Tablet PO SCH ×4 (01:28→20:57)
[2023-06-11] MEDS: Ipratropium Bromide 2.5 ml Neb NEB SCH ×4 (01:59→19:15)
[2023-06-11 04:13] LABS: Anion Gap 10 mmol/L (10-20); BUN (Urea Nitrogen) 29 mg/dL (8.4-25.7); Calc. Creatinine Clearance 58 mL/min (70-130); Carbon Dioxide 16 mmol/L (23-31); Chloride 102 mmol/L (98-107); Estimated GFR 89; Glucose 145 mg/dL (83-110); Sodium 124 mmol/L (136-145)
[2023-06-11] MEDS: Pantoprazole 40 MG VIAL IVP SCH ×3 (08:55→20:55)
[2023-06-11] MEDS: metroNIDAZOLE 500 MG TAB PO SCH ×2 (08:56→20:56)
[2023-06-11] MEDS: Apixaban 5 MG TAB PO SCH ×2 (08:56→20:56)
[2023-06-11] MEDS: Digoxin 0.125 MG TAB PO SCH (08:56)
[2023-06-11] MEDS: Aspirin 81 mg Enteric Coated Tablet PO SCH (08:56)
[2023-06-11] MEDS: Multivit, Therapeutic 1 TAB PO SCH (08:56)
[2023-06-11] MEDS: Ferrous Sulfate 325 MG TAB PO SCH ×2 (08:56→16:09)
[2023-06-11] MEDS: Isosorbide Mononitrate 30 MG ER.TAB PO SCH (08:57)
[2023-06-11] MEDS: Finasteride 5 MG TAB PO SCH (08:57)
[2023-06-11] MEDS: Amiodarone 200 MG TAB PO SCH (08:57)
[2023-06-11] MEDS: AMOXicillin 250 MG CAP PO SCH ×2 (08:57→20:55)
[2023-06-11] MEDS: Cholecalciferol 1,000 UNITS (25 MCG) TAB PO SCH (08:57)
[2023-06-11] MEDS: Gabapentin 300 MG CAP PO SCH ×2 (08:57→20:56)
[2023-06-11] MEDS: Hydroxychloroquine Sulfate 200 MG TAB PO SCH ×2 (08:58→20:55)
[2023-06-11] MEDS: predniSONE 5 MG TAB PO SCH (08:58)
[2023-06-11] MEDS ORDERED: Sodium Chloride 0.9% 1,000 ML IV SCH (09:45)
[2023-06-11] MEDS ORDERED: Sodium Bicarbonate 150 MEQ in Dextrose 5% in Water 1,000 ML IV SCH (10:30)
[2023-06-11] MEDS: [UNRECOGNIZED DRUG - REMARK] IV SCH (14:09)
[2023-06-11] MEDS: Fat Emulsion 250 ML IVPB SCH (14:10)
[2023-06-11] MEDS: Tamsulosin HCl 0.4 MG CAP PO SCH (20:55)
[2023-06-11] MEDS: Atorvastatin Calcium 20 MG TAB PO SCH (20:56)
[2023-06-12] MEDS: Diphenoxylate HCl/Atropine Tablet PO SCH ×5 (00:15→23:53)
[2023-06-12] MEDS: Ipratropium Bromide 2.5 ml Neb NEB SCH ×4 (01:51→19:25)
[2023-06-12] MEDS: Acetaminophen 325 MG TAB PO PRN (02:55)
[2023-06-12 05:38] LABS: Anion Gap 12 mmol/L (10-20); BUN (Urea Nitrogen) 33 mg/dL (8.4-25.7); Calc. Creatinine Clearance 63 mL/min (70-130); Calcium 8.1 mg/dL (7.8-10.44); Carbon Dioxide 18 mmol/L (23-31); Chloride 98 mmol/L (98-107); Estimated GFR 91; Glucose 120 mg/dL (83-110); Magnesium 1.3 mg/dL (1.6-2.6); Sodium 124 mmol/L (136-145)
[2023-06-12 05:43] LABS: Phosphorus 1.2 mg/dL (2.3-4.7)
[2023-06-12] MEDS ORDERED: Potassium Phosphate 30 MMOL in Sodium Chloride 0.9% 250 ML 250 ML IVPB SCH (06:30)
[2023-06-12] MEDS ORDERED: Magnesium 2 GM/50 ML(in water) 2 GM in Premix 1 BAG IVPB SCH (06:30)
[2023-06-12] MEDS: Aspirin 81 mg Enteric Coated Tablet PO SCH (09:33)
[2023-06-12] MEDS: Isosorbide Mononitrate 30 MG ER.TAB PO SCH (09:33)
[2023-06-12] MEDS: predniSONE 5 MG TAB PO SCH (09:33)
[2023-06-12] MEDS: Apixaban 5 MG TAB PO SCH ×2 (09:33→20:55)
[2023-06-12] MEDS: Amiodarone 200 MG TAB PO SCH (09:33)
[2023-06-12] MEDS: AMOXicillin 250 MG CAP PO SCH ×2 (09:34→20:53)
[2023-06-12] MEDS: Ferrous Sulfate 325 MG TAB PO SCH ×2 (09:34→17:07)
[2023-06-12] MEDS: Cholecalciferol 1,000 UNITS (25 MCG) TAB PO SCH (09:34)
[2023-06-12] MEDS: Gabapentin 300 MG CAP PO SCH ×2 (09:34→20:54)
[2023-06-12] MEDS: Digoxin 0.125 MG TAB PO SCH (09:35)
[2023-06-12] MEDS: Finasteride 5 MG TAB PO SCH (09:35)
[2023-06-12] MEDS: metroNIDAZOLE 500 MG TAB PO SCH ×2 (09:35→20:54)
[2023-06-12] MEDS ORDERED: Sodium Bicarbonate 150 MEQ in Dextrose 5% in Water 1,000 ML IV SCH (10:00)
[2023-06-12] MEDS: Hydroxychloroquine Sulfate 200 MG TAB PO SCH ×2 (12:29→20:55)
[2023-06-12] MEDS: Pantoprazole 40 MG VIAL IVP SCH ×2 (12:29)
[2023-06-12] MEDS ORDERED: MAGNESIUM SULFATE IV SCH (14:00)
[2023-06-12] MEDS ORDERED: MULTITRACE IV SCH (14:00)
[2023-06-12] MEDS ORDERED: MULTIVITAMINS IV SCH (14:00)
[2023-06-12] MEDS ORDERED: [UNRECOGNIZED DRUG - OTHER] IV SCH (14:00)
[2023-06-12] MEDS: Fat Emulsion 250 ML IVPB SCH (14:54)
[2023-06-12] MEDS: Morphine 4 MG/ML VIAL SLOW IVP PRN (15:21)
[2023-06-12] MEDS: Atorvastatin Calcium 20 MG TAB PO SCH (20:54)
[2023-06-12] MEDS: Tamsulosin HCl 0.4 MG CAP PO SCH (20:55)
[2023-06-13] MEDS: Ipratropium Bromide 2.5 ml Neb NEB SCH ×3 (01:20→13:00)
[2023-06-13 04:29] LABS: Anion Gap 9 mmol/L (10-20); BUN (Urea Nitrogen) 30 mg/dL (8.4-25.7); Calc. Creatinine Clearance 70 mL/min (70-130); Carbon Dioxide 25 mmol/L (23-31); Chloride 98 mmol/L (98-107); Estimated GFR 94; Glucose 124 mg/dL (83-110); Magnesium 2.3 mg/dL (1.6-2.6); Phosphorus 3.5 mg/dL (2.3-4.7); Potassium 3.5 mmol/L (3.5-5.1); Sodium 128 mmol/L (136-145)
[2023-06-13] MEDS: Diphenoxylate HCl/Atropine Tablet PO SCH ×3 (05:49→17:17)
[2023-06-13] MEDS: Cholecalciferol 1,000 UNITS (25 MCG) TAB PO SCH (09:29)
[2023-06-13] MEDS: Hydroxychloroquine Sulfate 200 MG TAB PO SCH ×2 (09:29→22:08)
[2023-06-13] MEDS: Finasteride 5 MG TAB PO SCH (09:29)
[2023-06-13] MEDS: Isosorbide Mononitrate 30 MG ER.TAB PO SCH (09:29)
[2023-06-13] MEDS: Apixaban 5 MG TAB PO SCH ×2 (09:29→22:07)
[2023-06-13] MEDS: Amiodarone 200 MG TAB PO SCH (09:30)
[2023-06-13] MEDS: metroNIDAZOLE 500 MG TAB PO SCH ×2 (09:30→22:07)
[2023-06-13] MEDS: Aspirin 81 mg Enteric Coated Tablet PO SCH (09:30)
[2023-06-13] MEDS: Gabapentin 300 MG CAP PO SCH ×2 (09:30→22:06)
[2023-06-13] MEDS: predniSONE 5 MG TAB PO SCH (09:30)
[2023-06-13] MEDS: Digoxin 0.125 MG TAB PO SCH (09:30)
[2023-06-13] MEDS: Ferrous Sulfate 325 MG TAB PO SCH ×2 (09:30→17:17)
[2023-06-13] MEDS: AMOXicillin 250 MG CAP PO SCH ×2 (09:31→22:08)
[2023-06-13] MEDS: Sodium Chloride 0.9% 1,000 ML IV SCH ×2 (10:39→23:24)
[2023-06-13] MEDS: Pancrelipase DR 12,000 1 CAP PO SCH ×2 (13:07→17:17)
[2023-06-13] MEDS ORDERED: MULTITRACE IV SCH (14:00)
[2023-06-13] MEDS ORDERED: MULTIVITAMINS IV SCH (14:00)
[2023-06-13] MEDS ORDERED: [UNRECOGNIZED DRUG - OTHER] IV SCH (14:00)
[2023-06-13] MEDS ORDERED: POTASSIUM CHLORIDE IV SCH (14:00)
[2023-06-13] MEDS: Fat Emulsion 250 ML IVPB SCH (14:16)
[2023-06-13] MEDS: Atorvastatin Calcium 20 MG TAB PO SCH (22:07)
[2023-06-13] MEDS: Tamsulosin HCl 0.4 MG CAP PO SCH (22:08)
[2023-06-14] MEDS: Diphenoxylate HCl/Atropine Tablet PO SCH ×5 (00:35→23:28)
[2023-06-14 03:48] LABS: Anion Gap 9 mmol/L (10-20); BUN (Urea Nitrogen) 25 mg/dL (8.4-25.7); Calc. Creatinine Clearance 76 mL/min (70-130); Calcium 7.9 mg/dL (7.8-10.44); Carbon Dioxide 22 mmol/L (23-31); Chloride 103 mmol/L (98-107); Estimated GFR 96; Glucose 96 mg/dL (83-110); Potassium 4.3 mmol/L (3.5-5.1); Sodium 130 mmol/L (136-145)
[2023-06-14 07:05] LABS: Phosphorus 2.9 mg/dL (2.3-4.7)
[2023-06-14] MEDS: predniSONE 5 MG TAB PO SCH (10:05)
[2023-06-14] MEDS: Ferrous Sulfate 325 MG TAB PO SCH ×2 (10:05→17:17)
[2023-06-14] MEDS: AMOXicillin 250 MG CAP PO SCH ×2 (10:06→21:25)
[2023-06-14] MEDS: metroNIDAZOLE 500 MG TAB PO SCH ×2 (10:06→21:26)
[2023-06-14] MEDS: Gabapentin 300 MG CAP PO SCH ×2 (10:06→21:25)
[2023-06-14] MEDS: Digoxin 0.125 MG TAB PO SCH (10:06)
[2023-06-14] MEDS: Cholecalciferol 1,000 UNITS (25 MCG) TAB PO SCH (10:06)
[2023-06-14] MEDS: Apixaban 5 MG TAB PO SCH ×2 (10:07→21:25)
[2023-06-14] MEDS: Isosorbide Mononitrate 30 MG ER.TAB PO SCH (10:07)
[2023-06-14] MEDS: Finasteride 5 MG TAB PO SCH (10:07)
[2023-06-14] MEDS: Pancrelipase DR 12,000 1 CAP PO SCH ×3 (10:07→17:17)
[2023-06-14] MEDS: Amiodarone 200 MG TAB PO SCH (10:07)
[2023-06-14] MEDS: Aspirin 81 mg Enteric Coated Tablet PO SCH (10:07)
[2023-06-14] MEDS: Hydroxychloroquine Sulfate 200 MG TAB PO SCH ×2 (10:08→21:25)
[2023-06-14] MEDS: Sodium Chloride 0.9% 1,000 ML IV SCH ×2 (10:09→21:24)
[2023-06-14] MEDS ORDERED: MAGNESIUM SULFATE IV SCH (14:00)
[2023-06-14] MEDS ORDERED: MULTIVITAMINS IV SCH (14:00)
[2023-06-14] MEDS ORDERED: [UNRECOGNIZED DRUG - OTHER] IV SCH (14:00)
[2023-06-14] MEDS ORDERED: MULTITRACE IV SCH (14:00)
[2023-06-14] MEDS: Tamsulosin HCl 0.4 MG CAP PO SCH (21:25)
[2023-06-14] MEDS: Atorvastatin Calcium 20 MG TAB PO SCH (21:25)
[2023-06-14] MEDS: Morphine 4 MG/ML VIAL SLOW IVP PRN (21:57)
[2023-06-15 03:59] LABS: ALT (SGPT) 19 U/L (8-55); AST (SGOT) 21 U/L (5-34); Albumin 2.3 g/dL (3.4-4.8); Alkaline Phosphatase 112 U/L (40-110); Anion Gap 9 mmol/L (10-20); BUN (Urea Nitrogen) 23 mg/dL (8.4-25.7); Bilirubin, Total 0.4 mg/dL (0.2-1.2); Calc. Creatinine Clearance 80 mL/min (70-130); Calcium 7.6 mg/dL (7.8-10.44); Carbon Dioxide 20 mmol/L (23-31); Chloride 107 mmol/L (98-107); Estimated GFR 98; Globulin 2.2 g/dL (2.4-3.5); Glucose 108 mg/dL (83-110); Magnesium 2.1 mg/dL (1.6-2.6); Phosphorus 3.2 mg/dL (2.3-4.7); Potassium 4.6 mmol/L (3.5-5.1); Protein, Total 4.5 g/dL (5.8-8.1); Sodium 131 mmol/L (136-145)
[2023-06-15] MEDS: Sodium Chloride 0.9% 1,000 ML IV SCH (05:06)
[2023-06-15] MEDS: Diphenoxylate HCl/Atropine Tablet PO SCH ×3 (05:06→21:53)
[2023-06-15] MEDS: Ipratropium Bromide 2.5 ml Neb NEB PRN (07:15)
[2023-06-15] MEDS: Ferrous Sulfate 325 MG TAB PO SCH ×2 (08:43→17:51)
[2023-06-15] MEDS: AMOXicillin 250 MG CAP PO SCH ×2 (08:44→21:52)
[2023-06-15] MEDS: Amiodarone 200 MG TAB PO SCH (08:44)
[2023-06-15] MEDS: Pancrelipase DR 12,000 1 CAP PO SCH ×3 (08:44→17:51)
[2023-06-15] MEDS: predniSONE 5 MG TAB PO SCH (08:44)
[2023-06-15] MEDS: Digoxin 0.125 MG TAB PO SCH (08:45)
[2023-06-15] MEDS: Apixaban 5 MG TAB PO SCH ×2 (08:45→21:52)
[2023-06-15] MEDS: Aspirin 81 mg Enteric Coated Tablet PO SCH (08:45)
[2023-06-15] MEDS: Cholecalciferol 1,000 UNITS (25 MCG) TAB PO SCH (08:45)
[2023-06-15] MEDS: Finasteride 5 MG TAB PO SCH (08:46)
[2023-06-15] MEDS: Gabapentin 300 MG CAP PO SCH ×2 (08:46→21:52)
[2023-06-15] MEDS: Hydroxychloroquine Sulfate 200 MG TAB PO SCH ×2 (08:47→21:52)
[2023-06-15] MEDS: metroNIDAZOLE 500 MG TAB PO SCH ×2 (08:47→21:52)
[2023-06-15] MEDS: Isosorbide Mononitrate 30 MG ER.TAB PO SCH (08:47)
[2023-06-15] MEDS: Morphine 4 MG/ML VIAL SLOW IVP PRN (11:51)
[2023-06-15] MEDS: Albumin 25% 25 GM (100 mL) BOT IVPB SCH ×2 (11:56→17:51)
[2023-06-15] MEDS ORDERED: [UNRECOGNIZED DRUG - OTHER] IV SCH (14:00)
[2023-06-15] MEDS ORDERED: MULTIVITAMINS IV SCH (14:00)
[2023-06-15] MEDS ORDERED: MAGNESIUM SULFATE IV SCH (14:00)
[2023-06-15] MEDS ORDERED: MULTITRACE IV SCH (14:00)
[2023-06-15] MEDS: Fat Emulsion 250 ML IVPB SCH (14:28)
[2023-06-15 19:40] LABS: Bilirubin Neg (Negative); Blood, Urine Negative (Negative); Clarity Clear (Clear); Glucose, Urine (Dipstick) Normal (Negative); Ketone, Urine Negative (Negative); Leukocyte 100 (Negative); Nitrite Negative (Negative); Protein, Urine (Dipstick) Negative (Neg-Trace); Specific Gravity, Urine 1.015 (1.005-1.030); Urobilinogen Normal mg/dL (Less than 2)
[2023-06-15 19:48] LABS: Bacteria/HPF 1+ HPF (None Seen); CAUTI Indications for Culture Fever or rigors; RBC/HPF None Seen HPF (0-3); Squamous Epithelial 0-3 HPF (0-3); Urine Culture Reflex No No
[2023-06-15] MEDS: Atorvastatin Calcium 20 MG TAB PO SCH (21:52)
[2023-06-15] MEDS: Tamsulosin HCl 0.4 MG CAP PO SCH (21:52)
[2023-06-16] MEDS: Albumin 25% 25 GM (100 mL) BOT IVPB SCH ×4 (00:01→18:06)
[2023-06-16] MEDS ORDERED: Oxymetazoline HCl 0.05% ( 15 ML ) NASAL PRN (04:13)
[2023-06-16 04:21] LABS: ALT (SGPT) 16 U/L (8-55); AST (SGOT) 15 U/L (5-34); Alkaline Phosphatase 96 U/L (40-110); Anion Gap 10 mmol/L (10-20); BUN (Urea Nitrogen) 23 mg/dL (8.4-25.7); Bilirubin, Total 0.6 mg/dL (0.2-1.2); Calc. Creatinine Clearance 77 mL/min (70-130); Calcium 7.9 mg/dL (7.8-10.44); Carbon Dioxide 22 mmol/L (23-31); Chloride 105 mmol/L (98-107); Estimated GFR 97; Globulin 1.9 g/dL (2.4-3.5); Glucose 96 mg/dL (83-110); Magnesium 2.5 mg/dL (1.6-2.6); Potassium 4.3 mmol/L (3.5-5.1); Protein, Total 4.9 g/dL (5.8-8.1); Sodium 133 mmol/L (136-145)
[2023-06-16] MEDS: Diphenoxylate HCl/Atropine Tablet PO SCH ×3 (08:50→20:54)
[2023-06-16] MEDS: Amiodarone 200 MG TAB PO SCH (08:50)
[2023-06-16] MEDS: Finasteride 5 MG TAB PO SCH (08:50)
[2023-06-16] MEDS: Aspirin 81 mg Enteric Coated Tablet PO SCH (08:50)
[2023-06-16] MEDS: metroNIDAZOLE 500 MG TAB PO SCH ×2 (08:50→20:54)
[2023-06-16] MEDS: Digoxin 0.125 MG TAB PO SCH (08:51)
[2023-06-16] MEDS: Cholecalciferol 1,000 UNITS (25 MCG) TAB PO SCH (08:51)
[2023-06-16] MEDS: Isosorbide Mononitrate 30 MG ER.TAB PO SCH (08:51)
[2023-06-16] MEDS: Ferrous Sulfate 325 MG TAB PO SCH ×2 (08:52→15:51)
[2023-06-16] MEDS: Pancrelipase DR 12,000 1 CAP PO SCH ×3 (08:52→17:07)
[2023-06-16] MEDS: Apixaban 5 MG TAB PO SCH ×2 (08:52→20:55)
[2023-06-16] MEDS: AMOXicillin 250 MG CAP PO SCH ×2 (08:52→20:54)
[2023-06-16] MEDS: predniSONE 5 MG TAB PO SCH (08:52)
[2023-06-16] MEDS: Hydroxychloroquine Sulfate 200 MG TAB PO SCH ×2 (08:52→20:54)
[2023-06-16] MEDS: Gabapentin 300 MG CAP PO SCH ×2 (08:52→20:55)
[2023-06-16] MEDS ORDERED: Multivitamins, Adult 10 ML, MULTITRACE-4 CONC VIAL 1 ML in D15W-AA 5% with Lytes 2,000 ML IV SCH (14:00)
[2023-06-16] MEDS: Morphine 4 MG/ML VIAL SLOW IVP PRN (15:18)
[2023-06-16] MEDS: Atorvastatin Calcium 20 MG TAB PO SCH (20:54)
[2023-06-16] MEDS: Tamsulosin HCl 0.4 MG CAP PO SCH (20:55)
[2023-06-16] MEDS: Ipratropium Bromide 2.5 ml Neb NEB PRN (21:24)
[2023-06-17] MEDS: Albumin 25% 25 GM (100 mL) BOT IVPB SCH ×2 (00:23→06:48)
[2023-06-17] MEDS: Acetaminophen 325 MG TAB PO PRN ×2 (02:52→16:00)
[2023-06-17 04:18] LABS: ALT (SGPT) 14 U/L (8-55); AST (SGOT) 17 U/L (5-34); Albumin 3.7 g/dL (3.4-4.8); Alkaline Phosphatase 103 U/L (40-110); Anion Gap 11 mmol/L (10-20); BUN (Urea Nitrogen) 29 mg/dL (8.4-25.7); Bilirubin, Total 1.5 mg/dL (0.2-1.2); Calc. Creatinine Clearance 66 mL/min (70-130); Calcium 8.2 mg/dL (7.8-10.44); Carbon Dioxide 21 mmol/L (23-31); Chloride 103 mmol/L (98-107); Estimated GFR 92; Glucose 114 mg/dL (83-110); Magnesium 2.2 mg/dL (1.6-2.6); Phosphorus 3.7 mg/dL (2.3-4.7); Potassium 5.4 mmol/L (3.5-5.1); Protein, Total 5.7 g/dL (5.8-8.1); Sodium 130 mmol/L (136-145)
[2023-06-17] MEDS: Gabapentin 300 MG CAP PO SCH ×2 (09:03→20:52)
[2023-06-17] MEDS: AMOXicillin 250 MG CAP PO SCH ×2 (09:03→20:53)
[2023-06-17] MEDS: Aspirin 81 mg Enteric Coated Tablet PO SCH (09:04)
[2023-06-17] MEDS: Amiodarone 200 MG TAB PO SCH (09:04)
[2023-06-17] MEDS: predniSONE 5 MG TAB PO SCH (09:04)
[2023-06-17] MEDS: Hydroxychloroquine Sulfate 200 MG TAB PO SCH ×2 (09:05→20:53)
[2023-06-17] MEDS: metroNIDAZOLE 500 MG TAB PO SCH ×2 (09:05→20:53)
[2023-06-17] MEDS: Digoxin 0.125 MG TAB PO SCH (09:05)
[2023-06-17] MEDS: Cholecalciferol 1,000 UNITS (25 MCG) TAB PO SCH (09:05)
[2023-06-17] MEDS: Isosorbide Mononitrate 30 MG ER.TAB PO SCH (09:05)
[2023-06-17] MEDS: Ferrous Sulfate 325 MG TAB PO SCH ×2 (09:06→16:48)
[2023-06-17] MEDS: Diphenoxylate HCl/Atropine Tablet PO SCH ×2 (09:06→20:53)
[2023-06-17] MEDS: Finasteride 5 MG TAB PO SCH (09:06)
[2023-06-17] MEDS: Pancrelipase DR 12,000 1 CAP PO SCH ×3 (09:07→16:49)
[2023-06-17] MEDS: Apixaban 5 MG TAB PO SCH ×2 (09:09→20:53)
[2023-06-17] MEDS: Morphine 4 MG/ML VIAL SLOW IVP PRN (10:00)
[2023-06-17] MEDS ORDERED: LOKELMA 10 GM PACKET PO SCH (10:45)
[2023-06-17] MEDS ORDERED: Sodium Chloride 1 GM TAB PO SCH (10:45)
[2023-06-17] MEDS: Ipratropium Bromide 2.5 ml Neb NEB PRN ×2 (13:35→19:35)
[2023-06-17] MEDS ORDERED: Ipratropium/Albuterol 3 ML NEB NEB PRN (13:39)
[2023-06-17] MEDS ORDERED: Furosemide 20 MG (2 mL) VIAL SLOW IVP SCH ×2 (13:45)
[2023-06-17] MEDS ORDERED: [UNRECOGNIZED DRUG - REMARK] IV SCH (14:00)
[2023-06-17] MEDS: Sodium Chloride 1 GM TAB PO SCH ×2 (16:48→20:54)
[2023-06-17] MEDS: Atorvastatin Calcium 20 MG TAB PO SCH (20:52)
[2023-06-17] MEDS: Tamsulosin HCl 0.4 MG CAP PO SCH (20:53)
[2023-06-18 03:46] LABS: #Monocytes 0.5 10x3/uL (0.0-1.1); #Neutrophils 4.2 10x3/uL (1.5-8.4); %Basophils 0.5 % (0.0-2.0); %Eosinophils 0.6 % (0.0-6.0); %Lymphocytes 23.2 % (18.0-47.0); %Monocytes 7.1 % (0.0-10.0); %Neutrophils 66.1 % (40.0-75.0); Hematocrit 23.6 % (38.8-50.0); Hemoglobin 7.6 g/dL (13.5-17.5); Mean Corpuscular HGB CONC 32.2 g/dL (32.0-36.0); Mean Corpuscular Hemoglobin 27.8 pg (27.0-33.0); Mean Corpuscular Volume 86.4 fl (81.2-95.1); Platelet Count 198 10x3/uL (150-450); RBC Distribution Width 16.7 % (11.5-14.5); Red Blood Cell (RBC) Count 2.73 10x6/uL (4.32-5.72); White Blood Cell (WBC) Count 6.3 10x3/uL (3.5-10.5)
[2023-06-18 04:03] LABS: Anion Gap 13 mmol/L (10-20); BUN (Urea Nitrogen) 32 mg/dL (8.4-25.7); Calc. Creatinine Clearance 61 mL/min (70-130); Calcium 8.4 mg/dL (7.8-10.44); Carbon Dioxide 21 mmol/L (23-31); Chloride 102 mmol/L (98-107); Estimated GFR 90; Glucose 107 mg/dL (83-110); Magnesium 2.2 mg/dL (1.6-2.6); Potassium 4.5 mmol/L (3.5-5.1); Sodium 131 mmol/L (136-145)
[2023-06-18] MEDS: Ipratropium Bromide 2.5 ml Neb NEB PRN (05:45)
[2023-06-18] MEDS: Acetaminophen 325 MG TAB PO PRN (08:50)
[2023-06-18] MEDS: Isosorbide Mononitrate 30 MG ER.TAB PO SCH (08:52)
[2023-06-18] MEDS: Pancrelipase DR 12,000 1 CAP PO SCH ×3 (08:52→17:35)
[2023-06-18] MEDS: Aspirin 81 mg Enteric Coated Tablet PO SCH (08:52)
[2023-06-18] MEDS: Finasteride 5 MG TAB PO SCH (08:52)
[2023-06-18] MEDS: Diphenoxylate HCl/Atropine Tablet PO SCH ×2 (08:52→21:01)
[2023-06-18] MEDS: Cholecalciferol 1,000 UNITS (25 MCG) TAB PO SCH (08:53)
[2023-06-18] MEDS: Digoxin 0.125 MG TAB PO SCH (08:53)
[2023-06-18] MEDS: Gabapentin 300 MG CAP PO SCH ×2 (08:54→21:00)
[2023-06-18] MEDS: Amiodarone 200 MG TAB PO SCH (08:54)
[2023-06-18] MEDS: Ferrous Sulfate 325 MG TAB PO SCH ×2 (08:54→17:35)
[2023-06-18] MEDS: predniSONE 5 MG TAB PO SCH (08:55)
[2023-06-18] MEDS: Hydroxychloroquine Sulfate 200 MG TAB PO SCH ×2 (08:55→21:02)
[2023-06-18] MEDS: Sodium Chloride 1 GM TAB PO SCH ×3 (08:56→21:04)
[2023-06-18] MEDS: Apixaban 5 MG TAB PO SCH ×2 (10:04→21:01)
[2023-06-18] MEDS: Micafungin 100 MG in Sodium Chloride 0.9% 100 ML IVPB SCH (12:30)
[2023-06-18] MEDS: Fat Emulsion 250 ML IVPB SCH (14:51)
[2023-06-18] MEDS: [UNRECOGNIZED DRUG - OTHER] IV SCH (14:52)
[2023-06-18] MEDS: MULTITRACE IV SCH (14:52)
[2023-06-18] MEDS: MULTIVITAMINS IV SCH (14:52)
[2023-06-18] MEDS: Tamsulosin HCl 0.4 MG CAP PO SCH (21:01)
[2023-06-18] MEDS: Atorvastatin Calcium 20 MG TAB PO SCH (21:01)
[2023-06-19 04:07] LABS: #Eosinphils 0.1 10x3/uL (0.0-0.5); #Monocytes 0.4 10x3/uL (0.0-1.1); #Neutrophils 3.8 10x3/uL (1.5-8.4); %Basophils 0.4 % (0.0-2.0); %Eosinophils 1.4 % (0.0-6.0); %Lymphocytes 22.1 % (18.0-47.0); %Monocytes 7.7 % (0.0-10.0); %Neutrophils 67.2 % (40.0-75.0); Hematocrit 22.8 % (38.8-50.0); Hemoglobin 7.3 g/dL (13.5-17.5); Mean Corpuscular Hemoglobin 27.5 pg (27.0-33.0); Mean Platelet Volume 9.4 fl (7.4-10.4); Platelet Count 192 10x3/uL (150-450); RBC Distribution Width 16.8 % (11.5-14.5); Red Blood Cell (RBC) Count 2.65 10x6/uL (4.32-5.72); White Blood Cell (WBC) Count 5.6 10x3/uL (3.5-10.5)
[2023-06-19 04:09] LABS: ALT (SGPT) 16 U/L (8-55); AST (SGOT) 23 U/L (5-34); Albumin 3.2 g/dL (3.4-4.8); Alkaline Phosphatase 100 U/L (40-110); Anion Gap 15 mmol/L (10-20); BUN (Urea Nitrogen) 32 mg/dL (8.4-25.7); Bilirubin, Total 1.4 mg/dL (0.2-1.2); Calc. Creatinine Clearance 66 mL/min (70-130); Calcium 8.3 mg/dL (7.8-10.44); Carbon Dioxide 19 mmol/L (23-31); Cardiac Risk 2.8 (Less than 4.5); Chloride 107 mmol/L (98-107); Cholesterol 37 mg/dl (< 200 Desired); Estimated GFR 92; Glucose 79 mg/dL (83-110); HDL Cholesterol 13 mg/dL (>60 Neg Risk); LDL Cholesterol, Calculated 14 mg/dL; Magnesium 2.1 mg/dL (1.6-2.6); Phosphorus 3.5 mg/dL (2.3-4.7); Potassium 4.5 mmol/L (3.5-5.1); Protein, Total 5.2 g/dL (5.8-8.1); Sodium 136 mmol/L (136-145); Triglycerides 50 mg/dL (Less than 150)
[2023-06-19 04:33] LABS: INR-International Normal Ratio 1.2; Prothrombin Time 13.1 sec (9.5-12.1)
[2023-06-19] MEDS: Pancrelipase DR 12,000 1 CAP PO SCH ×3 (09:15→16:00)
[2023-06-19] MEDS: predniSONE 5 MG TAB PO SCH (09:15)
[2023-06-19] MEDS: Finasteride 5 MG TAB PO SCH (09:16)
[2023-06-19] MEDS: Diphenoxylate HCl/Atropine Tablet PO SCH ×2 (09:16→21:26)
[2023-06-19] MEDS: Digoxin 0.125 MG TAB PO SCH (09:16)
[2023-06-19] MEDS: Isosorbide Mononitrate 30 MG ER.TAB PO SCH (09:16)
[2023-06-19] MEDS: Cholecalciferol 1,000 UNITS (25 MCG) TAB PO SCH (09:17)
[2023-06-19] MEDS: Aspirin 81 mg Enteric Coated Tablet PO SCH (09:17)
[2023-06-19] MEDS: Amiodarone 200 MG TAB PO SCH (09:17)
[2023-06-19] MEDS: Hydroxychloroquine Sulfate 200 MG TAB PO SCH ×2 (09:17→21:21)
[2023-06-19] MEDS: Gabapentin 300 MG CAP PO SCH ×2 (09:18→21:18)
[2023-06-19] MEDS: Sodium Chloride 1 GM TAB PO SCH ×3 (09:18→21:21)
[2023-06-19] MEDS: Ferrous Sulfate 325 MG TAB PO SCH ×2 (09:18→16:02)
[2023-06-19] MEDS: Apixaban 5 MG TAB PO SCH ×2 (09:18→21:19)
[2023-06-19] MEDS: Micafungin 100 MG in Sodium Chloride 0.9% 100 ML IVPB SCH (11:42)
[2023-06-19] MEDS: MULTIVITAMINS IV SCH (15:00)
[2023-06-19] MEDS: [UNRECOGNIZED DRUG - OTHER] IV SCH (15:00)
[2023-06-19] MEDS: MULTITRACE IV SCH (15:00)
[2023-06-19 17:10] LABS: Reference Lab Name LABCORP
[2023-06-19] MEDS: Tamsulosin HCl 0.4 MG CAP PO SCH (21:18)
[2023-06-19] MEDS: Atorvastatin Calcium 20 MG TAB PO SCH (21:19)
[2023-06-20 03:40] LABS: #Eosinphils 0.1 10x3/uL (0.0-0.5); #Monocytes 0.4 10x3/uL (0.0-1.1); #Neutrophils 3.1 10x3/uL (1.5-8.4); %Basophils 0.6 % (0.0-2.0); %Eosinophils 2.3 % (0.0-6.0); %Lymphocytes 29.3 % (18.0-47.0); %Monocytes 7.9 % (0.0-10.0); %Neutrophils 58.6 % (40.0-75.0); Hematocrit 25.8 % (38.8-50.0); Hemoglobin 8.3 g/dL (13.5-17.5); Mean Corpuscular HGB CONC 32.2 g/dL (32.0-36.0); Mean Corpuscular Hemoglobin 27.9 pg (27.0-33.0); Mean Corpuscular Volume 86.6 fl (81.2-95.1); Mean Platelet Volume 9.1 fl (7.4-10.4); Platelet Count 226 10x3/uL (150-450); RBC Distribution Width 17.1 % (11.5-14.5); Red Blood Cell (RBC) Count 2.98 10x6/uL (4.32-5.72); White Blood Cell (WBC) Count 5.3 10x3/uL (3.5-10.5)
[2023-06-20 04:17] LABS: Anion Gap 13 mmol/L (10-20); BUN (Urea Nitrogen) 26 mg/dL (8.4-25.7); Calc. Creatinine Clearance 68 mL/min (70-130); Calcium 8.6 mg/dL (7.8-10.44); Carbon Dioxide 20 mmol/L (23-31); Chloride 109 mmol/L (98-107); Estimated GFR 93; Glucose 73 mg/dL (83-110); Magnesium 2.1 mg/dL (1.6-2.6); Phosphorus 3.5 mg/dL (2.3-4.7); Potassium 4.4 mmol/L (3.5-5.1); Sodium 138 mmol/L (136-145)
[2023-06-20] MEDS: Gabapentin 300 MG CAP PO SCH ×2 (09:15→22:03)
[2023-06-20] MEDS: Digoxin 0.125 MG TAB PO SCH (09:16)
[2023-06-20] MEDS: Hydroxychloroquine Sulfate 200 MG TAB PO SCH ×2 (09:16→22:05)
[2023-06-20] MEDS: Finasteride 5 MG TAB PO SCH (09:17)
[2023-06-20] MEDS: Diphenoxylate HCl/Atropine Tablet PO SCH ×2 (09:17→22:04)
[2023-06-20] MEDS: Cholecalciferol 1,000 UNITS (25 MCG) TAB PO SCH (09:17)
[2023-06-20] MEDS: Isosorbide Mononitrate 30 MG ER.TAB PO SCH (09:17)
[2023-06-20] MEDS: Sodium Chloride 1 GM TAB PO SCH ×4 (09:17→22:13)
[2023-06-20] MEDS: Aspirin 81 mg Enteric Coated Tablet PO SCH (09:18)
[2023-06-20] MEDS: Ferrous Sulfate 325 MG TAB PO SCH ×2 (09:18→16:12)
[2023-06-20] MEDS: Amiodarone 200 MG TAB PO SCH (09:18)
[2023-06-20] MEDS: predniSONE 5 MG TAB PO SCH (09:18)
[2023-06-20] MEDS: Pancrelipase DR 12,000 1 CAP PO SCH ×3 (09:18→16:12)
[2023-06-20] MEDS: Apixaban 5 MG TAB PO SCH ×2 (09:19→22:02)
[2023-06-20] MEDS: Micafungin 100 MG in Sodium Chloride 0.9% 100 ML IVPB SCH (11:13)
[2023-06-20 12:31] LABS: Bilirubin Neg (Negative); Blood, Urine Negative (Negative); Clarity Clear (Clear); Glucose, Urine (Dipstick) Normal (Negative); Ketone, Urine Negative (Negative); Leukocyte 25 (Negative); Nitrite Negative (Negative); Protein, Urine (Dipstick) Negative (Neg-Trace); Specific Gravity, Urine 1.015 (1.005-1.030); Urobilinogen Normal mg/dL (Less than 2)
[2023-06-20 12:35] LABS: Bacteria/HPF Rare-Few HPF (None Seen); RBC/HPF None Seen HPF (0-3); Squamous Epithelial None Seen HPF (0-3); WBC/HPF 0-3 HPF (0-3)
[2023-06-20] MEDS: Atorvastatin Calcium 20 MG TAB PO SCH (22:02)
[2023-06-20] MEDS: Tamsulosin HCl 0.4 MG CAP PO SCH (22:03)
[2023-06-21] MEDS: Pancrelipase DR 12,000 1 CAP PO SCH ×3 (08:19→16:17)
[2023-06-21] MEDS: Gabapentin 300 MG CAP PO SCH ×2 (08:19→21:53)
[2023-06-21] MEDS: Isosorbide Mononitrate 30 MG ER.TAB PO SCH (08:19)
[2023-06-21] MEDS: Apixaban 5 MG TAB PO SCH ×2 (08:19→21:54)
[2023-06-21] MEDS: Digoxin 0.125 MG TAB PO SCH (08:20)
[2023-06-21] MEDS: Cholecalciferol 1,000 UNITS (25 MCG) TAB PO SCH (08:20)
[2023-06-21] MEDS: Diphenoxylate HCl/Atropine Tablet PO SCH ×2 (08:20→21:52)
[2023-06-21] MEDS: Ferrous Sulfate 325 MG TAB PO SCH ×2 (08:21→16:17)
[2023-06-21] MEDS: Amiodarone 200 MG TAB PO SCH (08:21)
[2023-06-21] MEDS: Sodium Chloride 1 GM TAB PO SCH ×3 (08:21→21:52)
[2023-06-21] MEDS: Finasteride 5 MG TAB PO SCH (08:21)
[2023-06-21] MEDS: Aspirin 81 mg Enteric Coated Tablet PO SCH (08:21)
[2023-06-21] MEDS: Hydroxychloroquine Sulfate 200 MG TAB PO SCH ×2 (08:22→21:52)
[2023-06-21] MEDS: predniSONE 5 MG TAB PO SCH (08:22)
[2023-06-21] MEDS: Guaifenesin DM 100-10/5 ML UDCUP PO PRN ×2 (11:42→16:18)
[2023-06-21] MEDS: Micafungin 100 MG in Sodium Chloride 0.9% 100 ML IVPB SCH (11:42)
[2023-06-21] MEDS: Tamsulosin HCl 0.4 MG CAP PO SCH (21:52)
[2023-06-21] MEDS: Atorvastatin Calcium 20 MG TAB PO SCH (21:53)
[2023-06-22] MEDS: Pancrelipase DR 12,000 1 CAP PO SCH ×3 (08:00→17:13)
[2023-06-22] MEDS: Finasteride 5 MG TAB PO SCH (09:33)
[2023-06-22] MEDS: Apixaban 5 MG TAB PO SCH ×2 (09:33→21:52)
[2023-06-22] MEDS: Amiodarone 200 MG TAB PO SCH (09:33)
[2023-06-22] MEDS: predniSONE 5 MG TAB PO SCH (09:33)
[2023-06-22] MEDS: Sodium Chloride 1 GM TAB PO SCH ×3 (09:33→21:53)
[2023-06-22] MEDS: Hydroxychloroquine Sulfate 200 MG TAB PO SCH ×2 (09:33→21:53)
[2023-06-22] MEDS: Diphenoxylate HCl/Atropine Tablet PO SCH ×2 (09:34→21:52)
[2023-06-22] MEDS: Ferrous Sulfate 325 MG TAB PO SCH ×2 (09:34→17:13)
[2023-06-22] MEDS: Isosorbide Mononitrate 30 MG ER.TAB PO SCH (09:34)
[2023-06-22] MEDS: Digoxin 0.125 MG TAB PO SCH (09:35)
[2023-06-22] MEDS: Aspirin 81 mg Enteric Coated Tablet PO SCH (09:35)
[2023-06-22] MEDS: Gabapentin 300 MG CAP PO SCH ×2 (09:35→21:53)
[2023-06-22] MEDS: Cholecalciferol 1,000 UNITS (25 MCG) TAB PO SCH (09:35)
[2023-06-22] MEDS: Micafungin 100 MG in Sodium Chloride 0.9% 100 ML IVPB SCH (12:30)
[2023-06-22] MEDS: Atorvastatin Calcium 20 MG TAB PO SCH (21:52)
[2023-06-22] MEDS: Tamsulosin HCl 0.4 MG CAP PO SCH (21:54)
[2023-06-23 03:55] LABS: #Eosinphils 0.1 10x3/uL (0.0-0.5); #Monocytes 0.4 10x3/uL (0.0-1.1); #Neutrophils 3.3 10x3/uL (1.5-8.4); %Basophils 0.5 % (0.0-2.0); %Eosinophils 1.8 % (0.0-6.0); %Lymphocytes 37.2 % (18.0-47.0); %Monocytes 7.1 % (0.0-10.0); %Neutrophils 52.3 % (40.0-75.0); Hematocrit 29.7 % (38.8-50.0); Hemoglobin 9.5 g/dL (13.5-17.5); Mean Corpuscular Hemoglobin 27.9 pg (27.0-33.0); Mean Corpuscular Volume 87.1 fl (81.2-95.1); Mean Platelet Volume 9.1 fl (7.4-10.4); Platelet Count 329 10x3/uL (150-450); RBC Distribution Width 17.2 % (11.5-14.5); Red Blood Cell (RBC) Count 3.41 10x6/uL (4.32-5.72); White Blood Cell (WBC) Count 6.2 10x3/uL (3.5-10.5)
[2023-06-23 04:15] LABS: Anion Gap 11 mmol/L (10-20); BUN (Urea Nitrogen) 23 mg/dL (8.4-25.7); Calc. Creatinine Clearance 68 mL/min (70-130); Calcium 8.5 mg/dL (7.8-10.44); Carbon Dioxide 21 mmol/L (23-31); Chloride 111 mmol/L (98-107); Estimated GFR 93; Glucose 94 mg/dL (83-110); Potassium 4.2 mmol/L (3.5-5.1); Sodium 139 mmol/L (136-145)
[2023-06-23] MEDS: Sodium Chloride 1 GM TAB PO SCH ×3 (09:02→21:29)
[2023-06-23] MEDS: Gabapentin 300 MG CAP PO SCH ×2 (09:02→21:30)
[2023-06-23] MEDS: Aspirin 81 mg Enteric Coated Tablet PO SCH (09:03)
[2023-06-23] MEDS: Ferrous Sulfate 325 MG TAB PO SCH ×2 (09:03→16:35)
[2023-06-23] MEDS: Diphenoxylate HCl/Atropine Tablet PO SCH ×2 (09:03→21:29)
[2023-06-23] MEDS: Pancrelipase DR 12,000 1 CAP PO SCH ×3 (09:03→16:35)
[2023-06-23] MEDS: Hydroxychloroquine Sulfate 200 MG TAB PO SCH ×2 (09:03→21:31)
[2023-06-23] MEDS: Apixaban 5 MG TAB PO SCH ×2 (09:04→21:28)
[2023-06-23] MEDS: Cholecalciferol 1,000 UNITS (25 MCG) TAB PO SCH (09:04)
[2023-06-23] MEDS: Digoxin 0.125 MG TAB PO SCH (09:04)
[2023-06-23] MEDS: Amiodarone 200 MG TAB PO SCH (09:04)
[2023-06-23] MEDS: Finasteride 5 MG TAB PO SCH (09:04)
[2023-06-23] MEDS: Isosorbide Mononitrate 30 MG ER.TAB PO SCH (09:04)
[2023-06-23] MEDS: predniSONE 5 MG TAB PO SCH (09:05)
[2023-06-23] MEDS: Micafungin 100 MG in Sodium Chloride 0.9% 100 ML IVPB SCH (11:40)
[2023-06-23] MEDS: Atorvastatin Calcium 20 MG TAB PO SCH (21:28)
[2023-06-23] MEDS: Tamsulosin HCl 0.4 MG CAP PO SCH (21:29)
[2023-06-24] MEDS: Amiodarone 200 MG TAB PO SCH (09:48)
[2023-06-24] MEDS: Ferrous Sulfate 325 MG TAB PO SCH ×2 (09:48→17:10)
[2023-06-24] MEDS: Finasteride 5 MG TAB PO SCH (09:48)
[2023-06-24] MEDS: Diphenoxylate HCl/Atropine Tablet PO SCH ×2 (09:48→20:39)
[2023-06-24] MEDS: Digoxin 0.125 MG TAB PO SCH (09:49)
[2023-06-24] MEDS: Isosorbide Mononitrate 30 MG ER.TAB PO SCH (09:49)
[2023-06-24] MEDS: Gabapentin 300 MG CAP PO SCH ×2 (09:49→20:36)
[2023-06-24] MEDS: Apixaban 5 MG TAB PO SCH ×2 (09:49→20:35)
[2023-06-24] MEDS: Pancrelipase DR 12,000 1 CAP PO SCH ×3 (09:49→17:10)
[2023-06-24] MEDS: predniSONE 5 MG TAB PO SCH (09:50)
[2023-06-24] MEDS: Aspirin 81 mg Enteric Coated Tablet PO SCH (09:50)
[2023-06-24] MEDS: Hydroxychloroquine Sulfate 200 MG TAB PO SCH ×2 (09:50→20:36)
[2023-06-24] MEDS: Cholecalciferol 1,000 UNITS (25 MCG) TAB PO SCH (09:51)
[2023-06-24] MEDS: Sodium Chloride 1 GM TAB PO SCH ×3 (09:51→20:39)
[2023-06-24] MEDS: Micafungin 100 MG in Sodium Chloride 0.9% 100 ML IVPB SCH (11:30)
[2023-06-24] MEDS: Atorvastatin Calcium 20 MG TAB PO SCH (20:35)
[2023-06-24] MEDS: Tamsulosin HCl 0.4 MG CAP PO SCH (20:36)
[2023-06-25] MEDS: Lactated Ringer's 1,000 ML IV SCH (09:56)
[2023-06-25] MEDS: Sodium Chloride 1 GM TAB PO SCH ×3 (10:07→21:03)
[2023-06-25] MEDS: Hydroxychloroquine Sulfate 200 MG TAB PO SCH ×2 (10:07→21:06)
[2023-06-25] MEDS: predniSONE 5 MG TAB PO SCH (10:08)
[2023-06-25] MEDS: Ferrous Sulfate 325 MG TAB PO SCH ×2 (10:08→18:18)
[2023-06-25] MEDS: Cholecalciferol 1,000 UNITS (25 MCG) TAB PO SCH (10:08)
[2023-06-25] MEDS: Amiodarone 200 MG TAB PO SCH (10:09)
[2023-06-25] MEDS: Isosorbide Mononitrate 30 MG ER.TAB PO SCH (10:09)
[2023-06-25] MEDS: Gabapentin 300 MG CAP PO SCH ×2 (10:09→21:04)
[2023-06-25] MEDS: Diphenoxylate HCl/Atropine Tablet PO SCH ×2 (10:10→21:05)
[2023-06-25] MEDS: Pancrelipase DR 12,000 1 CAP PO SCH ×3 (10:10→18:18)
[2023-06-25] MEDS: Digoxin 0.125 MG TAB PO SCH (10:10)
[2023-06-25] MEDS: Aspirin 81 mg Enteric Coated Tablet PO SCH (10:10)
[2023-06-25] MEDS: Finasteride 5 MG TAB PO SCH (10:10)
[2023-06-25] MEDS: Morphine 4 MG/ML VIAL SLOW IVP PRN (11:46)
[2023-06-25] MEDS: Micafungin 100 MG in Sodium Chloride 0.9% 100 ML IVPB SCH (18:17)
[2023-06-25] MEDS: Apixaban 5 MG TAB PO SCH ×2 (18:18→21:05)
[2023-06-25] MEDS: Tamsulosin HCl 0.4 MG CAP PO SCH (21:04)
[2023-06-25] MEDS: Atorvastatin Calcium 20 MG TAB PO SCH (21:05)
[2023-06-26] MEDS: Lactated Ringer's 1,000 ML IV SCH ×3 (02:00→16:12)
[2023-06-26] MEDS: Gabapentin 300 MG CAP PO SCH ×2 (09:18→21:38)
[2023-06-26] MEDS: Cholecalciferol 1,000 UNITS (25 MCG) TAB PO SCH (09:18)
[2023-06-26] MEDS: Apixaban 5 MG TAB PO SCH ×2 (09:19→21:39)
[2023-06-26] MEDS: Diphenoxylate HCl/Atropine Tablet PO SCH ×2 (09:19→21:38)
[2023-06-26] MEDS: Isosorbide Mononitrate 30 MG ER.TAB PO SCH (09:20)
[2023-06-26] MEDS: Ferrous Sulfate 325 MG TAB PO SCH ×2 (09:20→16:25)
[2023-06-26] MEDS: Finasteride 5 MG TAB PO SCH (09:20)
[2023-06-26] MEDS: Aspirin 81 mg Enteric Coated Tablet PO SCH (09:20)
[2023-06-26] MEDS: Hydroxychloroquine Sulfate 200 MG TAB PO SCH ×2 (09:21→21:38)
[2023-06-26] MEDS: Digoxin 0.125 MG TAB PO SCH (09:21)
[2023-06-26] MEDS: Amiodarone 200 MG TAB PO SCH (09:21)
[2023-06-26] MEDS: Sodium Chloride 1 GM TAB PO SCH ×3 (09:21→21:38)
[2023-06-26] MEDS: Pancrelipase DR 12,000 1 CAP PO SCH ×3 (09:22→16:26)
[2023-06-26] MEDS: predniSONE 5 MG TAB PO SCH (09:32)
[2023-06-26] MEDS: Micafungin 100 MG in Sodium Chloride 0.9% 100 ML IVPB SCH (12:58)
[2023-06-26] MEDS: Tamsulosin HCl 0.4 MG CAP PO SCH (21:38)
[2023-06-26] MEDS: Atorvastatin Calcium 20 MG TAB PO SCH (21:39)
[2023-06-27] MEDS: Lactated Ringer's 1,000 ML IV SCH ×3 (02:37→21:03)
[2023-06-27 04:36] LABS: #Eosinphils 0.1 10x3/uL (0.0-0.5); #Monocytes 0.4 10x3/uL (0.0-1.1); #Neutrophils 2.8 10x3/uL (1.5-8.4); %Basophils 0.3 % (0.0-2.0); %Eosinophils 1.5 % (0.0-6.0); %Lymphocytes 42.6 % (18.0-47.0); %Monocytes 6.4 % (0.0-10.0); %Neutrophils 47.7 % (40.0-75.0); Hemoglobin 9.9 g/dL (13.5-17.5); Mean Corpuscular HGB CONC 31.9 g/dL (32.0-36.0); Mean Corpuscular Hemoglobin 28.1 pg (27.0-33.0); Mean Corpuscular Volume 88.1 fl (81.2-95.1); Mean Platelet Volume 9.2 fl (7.4-10.4); Platelet Count 443 10x3/uL (150-450); RBC Distribution Width 17.9 % (11.5-14.5); Red Blood Cell (RBC) Count 3.52 10x6/uL (4.32-5.72)
[2023-06-27 04:38] LABS: Anion Gap 12 mmol/L (10-20); BUN (Urea Nitrogen) 13 mg/dL (8.4-25.7); Calc. Creatinine Clearance 68 mL/min (70-130); Calcium 8.7 mg/dL (7.8-10.44); Carbon Dioxide 20 mmol/L (23-31); Chloride 110 mmol/L (98-107); Estimated GFR 93; Glucose 82 mg/dL (83-110); Magnesium 1.7 mg/dL (1.6-2.6); Potassium 4.2 mmol/L (3.5-5.1); Sodium 138 mmol/L (136-145)
[2023-06-27] MEDS: Pancrelipase DR 12,000 1 CAP PO SCH ×3 (08:27→16:12)
[2023-06-27] MEDS: Isosorbide Mononitrate 30 MG ER.TAB PO SCH (08:28)
[2023-06-27] MEDS: Gabapentin 300 MG CAP PO SCH ×2 (08:29→21:02)
[2023-06-27] MEDS: Diphenoxylate HCl/Atropine Tablet PO SCH ×2 (08:29→21:03)
[2023-06-27] MEDS: Cholecalciferol 1,000 UNITS (25 MCG) TAB PO SCH (08:30)
[2023-06-27] MEDS: Digoxin 0.125 MG TAB PO SCH (08:30)
[2023-06-27] MEDS: Ferrous Sulfate 325 MG TAB PO SCH ×2 (08:31→16:13)
[2023-06-27] MEDS: Finasteride 5 MG TAB PO SCH (08:31)
[2023-06-27] MEDS: Amiodarone 200 MG TAB PO SCH (08:31)
[2023-06-27] MEDS: Aspirin 81 mg Enteric Coated Tablet PO SCH (08:32)
[2023-06-27] MEDS: Hydroxychloroquine Sulfate 200 MG TAB PO SCH ×2 (08:32→21:02)
[2023-06-27] MEDS: Sodium Chloride 1 GM TAB PO SCH ×3 (08:34→21:03)
[2023-06-27] MEDS: predniSONE 5 MG TAB PO SCH (08:35)
[2023-06-27] MEDS: Apixaban 5 MG TAB PO SCH ×2 (09:23→21:01)
[2023-06-27] MEDS: Micafungin 100 MG in Sodium Chloride 0.9% 100 ML IVPB SCH (12:33)
[2023-06-27] MEDS: Morphine 4 MG/ML VIAL SLOW IVP PRN (12:41)
[2023-06-27] MEDS: Tamsulosin HCl 0.4 MG CAP PO SCH (21:01)
[2023-06-27] MEDS: Atorvastatin Calcium 20 MG TAB PO SCH (21:02)
[2023-06-28] MEDS: Ferrous Sulfate 325 MG TAB PO SCH ×2 (10:08→16:26)
[2023-06-28] MEDS: Isosorbide Mononitrate 30 MG ER.TAB PO SCH (10:08)
[2023-06-28] MEDS: Diphenoxylate HCl/Atropine Tablet PO SCH ×2 (10:08→20:23)
[2023-06-28] MEDS: Aspirin 81 mg Enteric Coated Tablet PO SCH (10:08)
[2023-06-28] MEDS: Digoxin 0.125 MG TAB PO SCH (10:09)
[2023-06-28] MEDS: Apixaban 5 MG TAB PO SCH ×2 (10:09→20:20)
[2023-06-28] MEDS: Amiodarone 200 MG TAB PO SCH (10:09)
[2023-06-28] MEDS: Cholecalciferol 1,000 UNITS (25 MCG) TAB PO SCH (10:09)
[2023-06-28] MEDS: Finasteride 5 MG TAB PO SCH (10:10)
[2023-06-28] MEDS: Gabapentin 300 MG CAP PO SCH ×2 (10:10→20:20)
[2023-06-28] MEDS: predniSONE 5 MG TAB PO SCH (10:11)
[2023-06-28] MEDS: Pancrelipase DR 12,000 1 CAP PO SCH ×3 (10:11→16:26)
[2023-06-28] MEDS: Hydroxychloroquine Sulfate 200 MG TAB PO SCH ×2 (10:12→20:20)
[2023-06-28] MEDS: Sodium Chloride 1 GM TAB PO SCH ×3 (10:12→20:22)
[2023-06-28] MEDS: Lactated Ringer's 1,000 ML IV SCH ×2 (10:42→17:57)
[2023-06-28] MEDS: Micafungin 100 MG in Sodium Chloride 0.9% 100 ML IVPB SCH (11:27)
[2023-06-28] MEDS: Morphine 4 MG/ML VIAL SLOW IVP PRN (20:18)
[2023-06-28] MEDS: Atorvastatin Calcium 20 MG TAB PO SCH (20:19)
[2023-06-28] MEDS: Tamsulosin HCl 0.4 MG CAP PO SCH (20:19)
[2023-06-29] MEDS: Lactated Ringer's 1,000 ML IV SCH ×2 (05:05→13:41)
[2023-06-29] MEDS: Isosorbide Mononitrate 30 MG ER.TAB PO SCH (09:36)
[2023-06-29] MEDS: Diphenoxylate HCl/Atropine Tablet PO SCH ×2 (09:36→21:53)
[2023-06-29] MEDS: Finasteride 5 MG TAB PO SCH (09:36)
[2023-06-29] MEDS: Ferrous Sulfate 325 MG TAB PO SCH ×2 (09:37→16:32)
[2023-06-29] MEDS: Digoxin 0.125 MG TAB PO SCH (09:37)
[2023-06-29] MEDS: Amiodarone 200 MG TAB PO SCH (09:38)
[2023-06-29] MEDS: Hydroxychloroquine Sulfate 200 MG TAB PO SCH ×2 (09:38→21:53)
[2023-06-29] MEDS: Aspirin 81 mg Enteric Coated Tablet PO SCH (09:38)
[2023-06-29] MEDS: Cholecalciferol 1,000 UNITS (25 MCG) TAB PO SCH (09:38)
[2023-06-29] MEDS: Apixaban 5 MG TAB PO SCH ×2 (09:38→21:53)
[2023-06-29] MEDS: Pancrelipase DR 12,000 1 CAP PO SCH ×3 (09:39→16:33)
[2023-06-29] MEDS: predniSONE 5 MG TAB PO SCH (09:39)
[2023-06-29] MEDS: Gabapentin 300 MG CAP PO SCH ×2 (09:40→21:51)
[2023-06-29] MEDS: Sodium Chloride 1 GM TAB PO SCH ×3 (09:40→21:51)
[2023-06-29] MEDS: Morphine 4 MG/ML VIAL SLOW IVP PRN (10:55)
[2023-06-29] MEDS: Micafungin 100 MG in Sodium Chloride 0.9% 100 ML IVPB SCH (11:03)
[2023-06-29] MEDS: Atorvastatin Calcium 20 MG TAB PO SCH (21:52)
[2023-06-29] MEDS: Tamsulosin HCl 0.4 MG CAP PO SCH (21:52)
[2023-06-30] MEDS: Lactated Ringer's 1,000 ML IV SCH ×2 (06:33→12:14)
[2023-06-30] MEDS: Isosorbide Mononitrate 30 MG ER.TAB PO SCH (09:47)
[2023-06-30] MEDS: Sodium Chloride 1 GM TAB PO SCH ×3 (09:47→21:44)
[2023-06-30] MEDS: Finasteride 5 MG TAB PO SCH (09:47)
[2023-06-30] MEDS: Gabapentin 300 MG CAP PO SCH ×2 (09:47→21:45)
[2023-06-30] MEDS: Amiodarone 200 MG TAB PO SCH (09:48)
[2023-06-30] MEDS: Ferrous Sulfate 325 MG TAB PO SCH ×2 (09:48→16:57)
[2023-06-30] MEDS: Apixaban 5 MG TAB PO SCH ×2 (09:48→21:45)
[2023-06-30] MEDS: Diphenoxylate HCl/Atropine Tablet PO SCH ×2 (09:48→21:45)
[2023-06-30] MEDS: Cholecalciferol 1,000 UNITS (25 MCG) TAB PO SCH (09:48)
[2023-06-30] MEDS: Digoxin 0.125 MG TAB PO SCH (09:49)
[2023-06-30] MEDS: predniSONE 5 MG TAB PO SCH (09:51)
[2023-06-30] MEDS: Hydroxychloroquine Sulfate 200 MG TAB PO SCH ×2 (09:51→21:46)
[2023-06-30] MEDS: Pancrelipase DR 12,000 1 CAP PO SCH ×3 (09:51→16:57)
[2023-06-30] MEDS: Aspirin 81 mg Enteric Coated Tablet PO SCH (09:51)
[2023-06-30] MEDS: Micafungin 100 MG in Sodium Chloride 0.9% 100 ML IVPB SCH (12:15)
[2023-06-30] MEDS: Atorvastatin Calcium 20 MG TAB PO SCH (21:45)
[2023-06-30] MEDS: Tamsulosin HCl 0.4 MG CAP PO SCH (21:46)
[2023-07-01] MEDS: Lactated Ringer's 1,000 ML IV SCH (01:08)
[2023-07-01] MEDS: Aspirin 81 mg Enteric Coated Tablet PO SCH (09:55)
[2023-07-01] MEDS: Apixaban 5 MG TAB PO SCH ×2 (09:56→21:48)
[2023-07-01] MEDS: Pancrelipase DR 12,000 1 CAP PO SCH ×3 (09:56→17:34)
[2023-07-01] MEDS: Amiodarone 200 MG TAB PO SCH (09:56)
[2023-07-01] MEDS: Ferrous Sulfate 325 MG TAB PO SCH ×2 (09:56→16:00)
[2023-07-01] MEDS: Gabapentin 300 MG CAP PO SCH ×2 (09:56→21:48)
[2023-07-01] MEDS: Sodium Chloride 1 GM TAB PO SCH ×3 (09:56→21:49)
[2023-07-01] MEDS: Hydroxychloroquine Sulfate 200 MG TAB PO SCH (09:56)
[2023-07-01] MEDS: predniSONE 5 MG TAB PO SCH (09:57)
[2023-07-01] MEDS: Isosorbide Mononitrate 30 MG ER.TAB PO SCH (09:57)
[2023-07-01] MEDS: Digoxin 0.125 MG TAB PO SCH (09:57)
[2023-07-01] MEDS: Finasteride 5 MG TAB PO SCH (09:57)
[2023-07-01] MEDS: Cholecalciferol 1,000 UNITS (25 MCG) TAB PO SCH (09:57)
[2023-07-01] MEDS: Diphenoxylate HCl/Atropine Tablet PO SCH ×2 (09:57→21:48)
[2023-07-01] MEDS: Micafungin 100 MG in Sodium Chloride 0.9% 100 ML IVPB SCH (12:16)
[2023-07-01] MEDS: Tamsulosin HCl 0.4 MG CAP PO SCH (21:48)
[2023-07-01] MEDS: Atorvastatin Calcium 20 MG TAB PO SCH (21:48)
[2023-07-01] MEDS ORDERED: Hydroxychloroquine Sulfate 200 MG TAB PO SCH (22:45)
[2023-07-02] MEDS ORDERED: Hydroxychloroquine Sulfate 200 MG TAB PO SCH (09:00)
[2023-07-02] MEDS: Ferrous Sulfate 325 MG TAB PO SCH (09:35)
[2023-07-02] MEDS: Digoxin 0.125 MG TAB PO SCH (09:36)
[2023-07-02] MEDS: Pancrelipase DR 12,000 1 CAP PO SCH ×2 (09:36→11:31)
[2023-07-02] MEDS: Finasteride 5 MG TAB PO SCH (09:36)
[2023-07-02] MEDS: Aspirin 81 mg Enteric Coated Tablet PO SCH (09:36)
[2023-07-02] MEDS: predniSONE 5 MG TAB PO SCH (09:36)
[2023-07-02] MEDS: Apixaban 5 MG TAB PO SCH (09:36)
[2023-07-02] MEDS: Amiodarone 200 MG TAB PO SCH (09:36)
[2023-07-02] MEDS: Diphenoxylate HCl/Atropine Tablet PO SCH (09:37)
[2023-07-02] MEDS: Cholecalciferol 1,000 UNITS (25 MCG) TAB PO SCH (09:37)
[2023-07-02] MEDS: Gabapentin 300 MG CAP PO SCH (09:37)
[2023-07-02] MEDS: Isosorbide Mononitrate 30 MG ER.TAB PO SCH (09:37)
[2023-07-02] MEDS: Sodium Chloride 1 GM TAB PO SCH (09:44)
[2023-07-02] MEDS: Micafungin 100 MG in Sodium Chloride 0.9% 100 ML IVPB SCH (11:30)
[2023-07-02] MEDS: Morphine 4 MG/ML VIAL SLOW IVP PRN (11:31)
[2023-07-02 12:35] VITALS: BP 156/78; TEMP 97.8
== END 2023-07-02 15:15 | disposition home health service (06) | DRG 308 ==
LOC: CSHTELE 17:02 → INTOOBSV 17:02 → CSHTELE 18:23 → OBSVTOIN 06-02 16:30
PROVIDERS: ADMIT Internal Medicine; ATTEND Internal Medicine
PROC: 30233J1 Transfusion of Nonautologous Serum Albumin into Peripheral Vein, Percutaneous Approach (ICD-10-PCS; 2023-06-03)
PROC: 02HV33Z Insertion of Infusion Device into Superior Vena Cava, Percutaneous Approach (ICD-10-PCS; principal; 2023-06-08)
PROC: B5181ZA Fluoroscopy of Superior Vena Cava using Low Osmolar Contrast, Guidance (ICD-10-PCS; 2023-06-08)
PROC: 3E04329 Introduction of Other Anti-infective into Central Vein, Percutaneous Approach (ICD-10-PCS; 2023-06-08)
PROC: B548ZZA Ultrasonography of Superior Vena Cava, Guidance (ICD-10-PCS; 2023-06-08)
PROC: 02HV33Z Insertion of Infusion Device into Superior Vena Cava, Percutaneous Approach (ICD-10-PCS; 2023-06-25)
PROC: B5181ZA Fluoroscopy of Superior Vena Cava using Low Osmolar Contrast, Guidance (ICD-10-PCS; 2023-06-25)
PROC: 3E04329 Introduction of Other Anti-infective into Central Vein, Percutaneous Approach (ICD-10-PCS; 2023-06-25)
PROC: B548ZZA Ultrasonography of Superior Vena Cava, Guidance (ICD-10-PCS; 2023-06-25)
DX: I48.0 Paroxysmal atrial fibrillation (principal); A41.9 Sepsis, unspecified organism; E43 Unspecified severe protein-calorie malnutrition; J18.9 Pneumonia, unspecified organism; K94.12 Enterostomy infection; B49 Unspecified mycosis; E87.1 Hypo-osmolality and hyponatremia; I50.42 Chronic combined systolic (congestive) and diastolic (congestive) heart failure; K55.9 Vascular disorder of intestine, unspecified; A04.8 Other specified bacterial intestinal infections; T81.30XA Disruption of wound, unspecified, initial encounter; Z68.1 Body mass index [BMI] 19.9 or less, adult; I42.9 Cardiomyopathy, unspecified; Z66 Do not resuscitate; I11.0 Hypertensive heart disease with heart failure; K86.89 Other specified diseases of pancreas; R07.1 Chest pain on breathing; D64.9 Anemia, unspecified; B37.9 Candidiasis, unspecified; N40.0 Benign prostatic hyperplasia without lower urinary tract symptoms; R53.81 Other malaise; E87.5 Hyperkalemia; D72.829 Elevated white blood cell count, unspecified; E78.5 Hyperlipidemia, unspecified; E88.09 Other disorders of plasma-protein metabolism, not elsewhere classified; M06.9 Rheumatoid arthritis, unspecified; K21.9 Gastro-esophageal reflux disease without esophagitis; K52.9 Noninfective gastroenteritis and colitis, unspecified; Z79.899 Other long term (current) drug therapy; Z95.0 Presence of cardiac pacemaker; Z82.49 Family history of ischemic heart disease and other diseases of the circulatory system; Z83.3 Family history of diabetes mellitus
CPT/HCPCS: 36415; 36416; 36569; 71045; 80048; 80053; 80061; 81001; 82436; 82607; 82728; 82805; 83540; 83550; 83605; 83735; 83880; 83930; 83935; 84100; 84132; 84133; 84134; 84145; 84300; 84443; 84484; 84550; 85025; 85610; 85730; 87040; 87071; 87086; 87324; 87338; 87449; 93005; 93010; 93306; 94640; 94760; 94762; 96374; 96375; 97139; C1751; C9113; G0378; J1720; J1940; J2248; J2270; J2272; J2405; J3475; J3480; J3490; J7030; J7050; J7070; J7120; J7512; J7620; P9047

== ENCOUNTER 2023-07-11 13:41 | Outpatient (CLI) | payer OTHER, MEDICARE | END 2023-07-11 13:42 | disposition home or self-care (01) | LOC: CSHWCC 13:41 | PROVIDERS: ATTEND Nurse Practitioner Family | DX: T81.31XD Disruption of external operation (surgical) wound, not elsewhere classified, subsequent encounter (principal); L89.113 Pressure ulcer of right upper back, stage 3; L89.510 Pressure ulcer of right ankle, unstageable; K55.039 Acute (reversible) ischemia of large intestine, extent unspecified | CPT/HCPCS: 11042; 99213; G0463 ==

== ENCOUNTER 2023-07-18 13:30 | Outpatient (CLI) | payer OTHER, MEDICARE | END 2023-07-18 13:31 | disposition home or self-care (01) | LOC: CSHWCC 13:30 | PROVIDERS: ATTEND Nurse Practitioner Family | DX: L89.113 Pressure ulcer of right upper back, stage 3 (principal); L89.510 Pressure ulcer of right ankle, unstageable; T81.31XD Disruption of external operation (surgical) wound, not elsewhere classified, subsequent encounter; K55.039 Acute (reversible) ischemia of large intestine, extent unspecified | CPT/HCPCS: 11042; 97597 ==

== ENCOUNTER 2023-07-25 10:11 | Outpatient (CLI) | payer MEDICARE | END 2023-07-25 10:12 | disposition home or self-care (01) | LOC: CSHWCC 10:11 | PROVIDERS: ATTEND Nurse Practitioner Family | DX: L89.113 Pressure ulcer of right upper back, stage 3 (principal); L89.510 Pressure ulcer of right ankle, unstageable; T81.31XD Disruption of external operation (surgical) wound, not elsewhere classified, subsequent encounter; K55.039 Acute (reversible) ischemia of large intestine, extent unspecified | CPT/HCPCS: 11042; 87070; 87077; 87186; 87205; 97597; G0463; 99214 ==

== ENCOUNTER 2023-10-04 10:39 | Outpatient (CLI) | payer MEDICARE | END 2023-10-04 10:40 | disposition home or self-care (01) | LOC: CSHWCC 10:39 | PROVIDERS: ATTEND Nurse Practitioner Family | DX: T81.31XD Disruption of external operation (surgical) wound, not elsewhere classified, subsequent encounter (principal); L89.510 Pressure ulcer of right ankle, unstageable | CPT/HCPCS: 11042 ==